=== PATIENT | male | born 1960 | race Caucasian/White ===

== ENCOUNTER → 2016-12-17 | Outpatient (CLI) | payer OTHER ==
--- NOTE | 2016-12-17 14:53 | CT ---
EXAMINATION TYPE: CT chest wo con DATE OF EXAM: 12/17/2016 2:49 PM COMPARISON: NONE HISTORY: shortness of breath CT DLP: [address] of the chest was performed with lung and mediastinal window settings submitted. The la ck of contrast limits evaluation of the vascular, mediastinal and parenchymal structures including th e upper abdomen. LUNGS: The lungs are clear and free of infiltrate. No atelectasis. No pulmonary nodule or mass is de tected. No pleural effusion. No CT evidence of interstitial lung disease. MEDIASTINUM/KERLINE: Thoracic aorta is of normal caliber with limited evaluation given lack of contrast . The heart is mildly enlarged. Mild coronary artery calcifications identified. No evidence for med iastinal mass. No lymph nodes greater than 1cm. UPPER ABDOMEN: No significant abnormality is seen. OTHER: No significant other abnormality. IMPRESSION: 1. No significant abnormality of the lungs. 2. Mild cardiomegaly and coronary artery calcifications.
== END | disposition home or self-care (01) ==
LOC: RADCTMAIN 14:27
PROVIDERS: ATTEND Internal Medicine Critical Care Medicine
DX: J98.4 Other disorders of lung (principal); I51.7 Cardiomegaly; I25.10 Atherosclerotic heart disease of native coronary artery without angina pectoris
CPT/HCPCS: 71250

== ENCOUNTER 2017-01-11 11:25 | Inpatient (IN) | payer OTHER ==
[2017-01-11] MEDS ORDERED: ASPIRIN 81 MG CHEW PO STA (11:46)
[2017-01-11] MEDS ORDERED: SODIUM CHLORIDE 0.9% 1,000 ML IV STA ×2 (11:46)
[2017-01-11] MEDS ORDERED: DILTIAZEM 5 MG/ML 5 ML VIAL IVP STA (11:47)
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
[2017-01-11] MEDS ORDERED: HEPARIN SODIUM,PORCINE 5,000 UNIT/ML 1 ML VIAL IV PRN (12:25)
[2017-01-11] MEDS: DILTIAZEM 125 MG in SODIUM CHLORIDE 0.9% 100 ML IV ONE (12:32)
[2017-01-11 12:35] LABS: Basophils % (A) 0 %; CH 30.8; CHCM 33.2; Eosinophils # (A) 0.1 k/uL (0-0.7); Eosinophils % (A) 1 %; HCT 49.1 % (39.0-53.0); HDW 2.38; Luc % (Auto) 2; Lymphocytes # (A) 1.5 k/uL (1.0-4.8); Lymphocytes % (A) 14 %; MCH 30.4 pg (25.0-35.0); MCHC 32.6 g/dL (31.0-37.0); MCV 93.4 fL (80.0-100.0); Mean Platelet Volume 8.8; Monocytes # (A) 0.6 k/uL (0-1.0); Monocytes % (A) 5 %; Neutrophils # (A) 8.6 k/uL (1.3-7.7); Neutrophils % (A) 78 %; RBC 5.26 m/uL (4.30-5.90); RDW 13.6 % (11.5-15.5); WBC (Perox) 11.05
[2017-01-11 12:50] LABS: ALT 82 U/L (21-72); AST 45 U/L (17-59); Alkaline Phosphatase 32 U/L (38-126); Anion Gap 11 mmol/L; Blood Urea Nitrogen 17 mg/dL (9-20); Calcium 9.4 mg/dL (8.4-10.2); Carbon Dioxide 21 mmol/L (22-30); Chloride 104 mmol/L (98-107); Glucose 145 mg/dL (74-99); Magnesium 1.8 mg/dL (1.6-2.3); Non-African American GFR(MDRD) >60 (>60 ml/min/1.73 sqM); Potassium 4.6 mmol/L (3.5-5.1); Sodium 136 mmol/L (137-145); Total Bilirubin 1.1 mg/dL (0.2-1.3); Total Protein 6.3 g/dL (6.3-8.2)
--- NOTE | 2017-01-11 12:51 | XR ---
EXAMINATION TYPE: XR chest 2V DATE OF EXAM: 01/11/2017 12:45 PM HISTORY: dysrhythmia. REFERENCE: NONE. FINDINGS: The heart is enlarged. There is mild atelectasis at the left lung base. There are diffuse i ncreased markings. Pleural spaces are clear. IMPRESSION: 1. CARDIOMEGALY. 2. LEFT BASILAR ATELECTASIS.
[2017-01-11 13:11] LABS: Partial Thromboplastin Time 22.6 sec (22.0-30.0); Prothrombin Time 10.6 sec (9.0-12.0)
[2017-01-11 13:19] LABS: Troponin I 0.036 ng/mL (0.000-0.034)
[2017-01-11] MEDS: SODIUM CHLORIDE 0.9% 1,000 ML IV SCH (13:46)
[2017-01-11] MEDS: HEPARIN SODIUM,PORCINE/D5W PMX 25,000 UNIT in DEXTROSE/WATER 1 500ML.BAG IV SCH (13:46)
[2017-01-11 15:18] LABS: Appearance,Urine Clear (Clear); Bilirubin,Urine Negative (Negative); Glucose,Urine (UA) Negative (Negative); Ketones,Urine Negative (Negative); Leukocyte Esterase,Urine Negative (Negative); Nitrite,Urine Negative (Negative); PH, Urine 6.5 (5.0-8.0); Protein,Urine Negative (Negative); Specific Gravity,Urine 1.013 (1.001-1.035); UA Billing (MACRO vs. MICRO) CHEM; Urobilinogen,Urine <2.0 mg/dL (<2.0)
[2017-01-11] MEDS ORDERED: ALPRAZolam 0.25 MG TAB PO PRN (16:48)
[2017-01-11] MEDS: FUROSEMIDE 10 MG/ML 2 ML VIAL IV SCH ×2 (16:53→20:43)
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
[2017-01-11] MEDS: LORazepam 0.5 MG TAB PO PRN (19:15)
[2017-01-11] MEDS: HYDROcodone/APAP 5-325MG 1 EACH TAB PO PRN (19:15)
[2017-01-11] MEDS: LEVALBUTEROL NEB 1.25 MG/3 ML AMP INHALATION SCH (20:26)
[2017-01-11] MEDS: METOPROLOL TARTRATE 25 MG TAB PO SCH (20:43)
[2017-01-11 20:50] LABS: Creatine Kinase MB 4.5 ng/mL (0.0-2.4); Troponin I 0.043 ng/mL (0.000-0.034)
[2017-01-11] MEDS ORDERED: TEMAZEPAM 15 MG CAP PO PRN (21:00)
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
[2017-01-12 00:33] LABS: Creatine Kinase MB 4.1 ng/mL (0.0-2.4); Troponin I 0.04 ng/mL (0.000-0.034)
[2017-01-12] MEDS: LORazepam 0.5 MG TAB PO PRN ×2 (03:14→11:56)
[2017-01-12 03:34] LABS: Basophils % (A) 0 %; CH 30.8; CHCM 33.1; Eosinophils # (A) 0.1 k/uL (0-0.7); Eosinophils % (A) 1 %; HCT 46.1 % (39.0-53.0); HDW 2.36; HGB 15.1 gm/dL (13.0-17.5); Luc # (Auto) 0.17; Luc % (Auto) 2; Lymphocytes # (A) 1.5 k/uL (1.0-4.8); Lymphocytes % (A) 13 %; MCH 30.6 pg (25.0-35.0); MCHC 32.8 g/dL (31.0-37.0); MCV 93.4 fL (80.0-100.0); Mean Platelet Volume 8.4; Monocytes # (A) 0.6 k/uL (0-1.0); Monocytes % (A) 5 %; Neutrophils % (A) 80 %; RBC 4.94 m/uL (4.30-5.90); RDW 13.7 % (11.5-15.5); WBC 11.3 k/uL (3.8-10.6); WBC (Perox) 11.94
[2017-01-12 03:41] LABS: Anion Gap 10 mmol/L; Blood Urea Nitrogen 20 mg/dL (9-20); Carbon Dioxide 20 mmol/L (22-30); Chloride 103 mmol/L (98-107); Cholesterol 140 mg/dL (<200); HDL Cholesterol 36 mg/dL (40-60); Non-African American GFR(MDRD) >60 (>60 ml/min/1.73 sqM); Potassium 4.3 mmol/L (3.5-5.1); Sodium 133 mmol/L (137-145); Triglycerides 75 mg/dL (<150)
[2017-01-12] MEDS: SODIUM CHLORIDE 0.9% 1,000 ML IV SCH ×2 (05:20→09:34)
[2017-01-12] MEDS: LEVOTHYROXINE 137 MCG TAB PO SCH (06:37)
[2017-01-12] MEDS: PANTOPRAZOLE 40 MG TABLET PO SCH (06:39)
[2017-01-12] MEDS: SYMBICORT 160-4.5 MCG INHALER INHALATION SCH ×2 (08:06→21:08)
[2017-01-12] MEDS: LEVALBUTEROL NEB 1.25 MG/3 ML AMP INHALATION SCH ×3 (08:06→21:09)
--- NOTE | 2017-01-12 08:57 | ECHOF ---
Referral Reason:atrial flutter MEASUREMENTS -------- HEIGHT: 180.3 cm WEIGHT: 127.9 kg BP: 108/83 RVIDd: 3.4 cm (< 3.3) IVSd: 1.5 cm (0.6 - 1.1) LVIDd: 4.8 cm (3.9 - 5.3) LVPWd: 1.6 cm (0.6 - 1.1) IVSs: 2.1 cm LVIDs: 4.1 cm LVPWs: 2.0 cm LA Diam: 3.7 cm (2.7 - 3.8) LAESV Index (A-L): 34.19 ml/m Ao Diam: 3.9 cm (2.0 - 3.7) AV Cusp: 2.3 cm (1.5 - 2.6) MV EXCURSION: 16.399 mm (> 18.000) MV EF SLOPE: 148 mm/s (70 - 150) EPSS: 1.2 cm RAP: 15.00 mmHg RVSP: 44.78 mmHg FINDINGS -------- The rhythm appears to be atrial flutter. This was a technically difficult study with suboptimal views. The left ventricular size is normal. There is moderate concentric left ventricular hypertrophy. There is severe global hypokinesis of LV . Overall left ventricular systolic function is severely impaired with, an EF between 20 - 25 %. The right ventricle is mildly enlarged. LA is moderately dilated 34-39 ml/m2 The right atrium was not well visualized. 1.5mg of Definity was utilized for enhancement of images The aortic valve was not well visualized. The mitral valve leaflets are mildly thickened. Mild mitral annular calcification present. Mild mitral regurgitation is present. Mild tricuspid regurgitation present. There is mild pulmonary hypertension. The right ventricular systolic pressure, as measured by Doppler, is 44.78mmHg. The pulmonic valve was not well visualized. The aortic root is dilated measuring 3.9cm. The inferior vena cava is dilated with poor inspiratory collapse which is consistent with estimated right atrial pressure of 20 mmHg. There is no pericardial effusion. CONCLUSIONS -------- 1. The rhythm appears to be atrial flutter. 2. 1.5mg of Definity was utilized for enhancement of images 3. The aortic valve was not well visualized. 4. The mitral valve leaflets are mildly thickened. 5. Mild mitral annular calcification present. 6. Mild mitral regurgitation is present. 7. Mild tricuspid regurgitation present. 8. There is mild pulmonary hypertension. 9. The right ventricular systolic pressure, as measured by Doppler, is 44.78mmHg. 10. The pulmonic valve was not well visualized. 11. The aortic root is dilated measuring 3.9cm. 12. This was a technically difficult study with suboptimal views. 13. The inferior vena cava is dilated with poor inspiratory collapse which is consistent with estimated right atrial pressure of 20 mmHg. 14. There is no pericardial effusion. 15. The left ventricular size is normal. 16. There is moderate concentric left ventricular hypertrophy. 17. There is severe global hypokinesis of LV . 18. Overall left ventricular systolic function is severely impaired with, an EF between 20 - 25 %. 19. The right ventricle is mildly enlarged. 20. LA is moderately dilated 34-39 ml/m2 21. The right atrium was not well visualized. TRANSFER PROFESSOR: Lupe Archer RDCS
[2017-01-12] MEDS: DILTIAZEM 125 MG in SODIUM CHLORIDE 0.9% 100 ML IV ONE (09:34)
[2017-01-12] MEDS: HEPARIN SODIUM,PORCINE/D5W PMX 25,000 UNIT in DEXTROSE/WATER 1 500ML.BAG IV SCH (09:35)
[2017-01-12] MEDS: ASPIRIN 325 MG TAB PO SCH (09:37)
[2017-01-12] MEDS: FUROSEMIDE 10 MG/ML 2 ML VIAL IV SCH ×2 (09:38→20:35)
[2017-01-12] MEDS: buPROPion XL 300 MG TAB.ER.24H PO SCH (09:38)
[2017-01-12] MEDS: LISINOPRIL 20 MG TAB PO SCH (09:39)
[2017-01-12] MEDS: MONTELUKAST 10 MG TAB PO SCH (09:39)
[2017-01-12] MEDS: METOPROLOL TARTRATE 25 MG TAB PO SCH (09:39)
[2017-01-12] MEDS: TRIAMTERENE-HCTZ 37.5-25MG 1 EACH TAB PO SCH (09:40)
[2017-01-12] MEDS: METHYLPHENIDATE HCL 10 MG TAB PO SCH ×2 (09:49→15:00)
[2017-01-12] MEDS: HYDROcodone/APAP 5-325MG 1 EACH TAB PO PRN (11:54)
[2017-01-12] MEDS: MULTIVITAMINS, THERA 1 EACH TAB PO SCH (11:56)
[2017-01-12] MEDS: FOLIC ACID 1 MG TAB PO SCH (11:56)
[2017-01-12] MEDS: THIAMINE 100 MG TAB PO SCH (11:57)
--- NOTE | 2017-01-12 12:27 | P.PN ---
Subjective Principal diagnosis: Atrial flutter This is a pleasant 56-year-old gentleman who sees Dr. Woodard as an outpatient with a past medical history significant for obesity and hypertension was seen in the office yesterday and was sent directly to the hospital because he was in atrial flutter with rapid ventricular response. The patient continues to be in atrial flutter with slightly uncontrolled heart rate. Currently he is on metoprolol 25 mg by mouth twice a day. The blood pressure has been within normal limits. He is on anticoagulation using heparin IV. He underwent an echocardiogram which showed severe cardiomyopathy with an ejection fraction of 20%. At this point, I am going to increase the dose of metoprolol to 50 twice a day. I am going to DC the heparin and start the patient on anticoagulation with Eliquis. We'll continue monitoring the heart rate. Objective - Vital Signs Vital signs: Vital Signs Temp 98.2 F 01/12/17 08:10 Pulse 90 01/12/17 08:10 Resp 20 01/12/17 08:10 BP 116/77 01/12/17 08:10 Pulse Ox 98 01/12/17 08:10 Intake & Output 01/11/17 01/12/17 01/12/17 18:59 06:59 18:59 Intake Total 180 378.227 226.940 Output Total 300 Balance -120 378.227 226.940 Weight 128.9 kg Intake: Intake, IV Titration 378.227 226.940 Amount Diltiazem 125 mg In 105.167 Sodium Chloride 0.9% 100 ml @ 5 MG/HR 5 mls/hr IV .Q24H ONE Rx#:[id number] Heparin Sodium,Porcine/ 378.227 121.773 D5w Pmx 25,000 unit In Dextrose/Water 1 500ml. bag @ 7.818 UNITS/KG/HR 20 mls/hr IV .Q24H [facility] Rx #:[id number] Oral 180 Output: Urine 300 Other: # Voids 1 2 # Bowel Movements 0 - Constitutional General appearance: Present: no acute distress - Respiratory Respiratory: bilateral: CTA - Cardiovascular Rhythm: irregularly irregular - Labs CBC & Chem 7: 01/12/17 03:10 01/12/17 03:10 Labs: Abnormal Lab Results - Last 24 Hours (Table) 01/11/17 01/11/17 01/12/17 Range/Units 19:34 23:39 03:10 WBC 11.3 H (3.8-10.6) k/uL Neutrophils # 9.0 H (1.3-7.7) k/uL APTT (22.0-30.0) sec Sodium (137-145) mmol/L Carbon Dioxide (22-30) mmol/L CK-MB (CK-2) 4.5 H* 4.1 H* (0.0-2.4) ng/mL Troponin I 0.043 H* 0.040 H* (0.000-0.034) ng/mL HDL Cholesterol (40-60) mg/dL 01/12/17 01/12/17 01/12/17 Range/Units 03:10 03:10 10:46 WBC (3.8-10.6) k/uL Neutrophils # (1.3-7.7) k/uL APTT 30.6 H 36.4 H (22.0-30.0) sec Sodium 133 L (137-145) mmol/L Carbon Dioxide 20 L (22-30) mmol/L CK-MB (CK-2) (0.0-2.4) ng/mL Troponin I (0.000-0.034) ng/mL HDL Cholesterol 36 L (40-60) mg/dL Assessment and Plan Plan: Assessment #1 atrial flutter with slightly uncontrolled heart rate #2 systemic hypertension #3 obesity #4 possible sleep apnea #5 severe cardiomyopathy and unknown if is ischemic or nonischemic Plan #1 increase the dose of metoprolol #2 DC heparin #3 start oral anticoagulation #4 follow-up with the patient
--- NOTE | 2017-01-12 12:48 | P.PN ---
Subjective Principal diagnosis: Atrial flutter 56-year-old male patient, obese, nonsmoker, who was initially referred to me for evaluation of shortness of breath. The patient was diagnosed having bronchial asthma many years back. His symptoms were rather nonspecific. He reports difficulties with his bronchial asthma along with episodes of shortness of breath chest tightness and wheezing and coughing and inability to fully expand his lungs. He had an FEV1 of 56% of predicted with limited reversibility post-bronchodilation.. He also had a total lung capacity of 68% of predicted and diffusion capacity of 110% of predicted. I started the patient on Breo Ellipta and gave him a prednisone burst taper. Upon subsequent follow-up, the response that she was suboptimal. The patient reported episodes with he was waking up in the middle of the night short of breath and this was really not accounted for only on pulmonary standpoint. Based on that, I referred this patient to cardiology and on today's evaluation with Dr. Woodard the patient was found to be having atrial flutter with rapid ventricular response. He had variable block. He was given a dose of Cardizem and the cardiology office without any significant slowing in his heart rate. Based on that the patient was admitted to the hospital for rate control and further treatment. Currently is on Cardizem drip running at 5 mg an hour. He is also on IV heparin. Echocardiogram is to follow. He denies having any chest pain. Most major swelling in lower extremities. He does have features of obstructive sleep apnea. the patient is seen again today in follow-up 01/12/2017 on the selective care unit. He is awake and alert in no acute distress. He states he has had some issues with my hope chest discomfort. His breathing has been about the same. He does have some palpitations. His heart rate is better controlled. He remains on a Cardizem drip at 5 mg per hour. He is anticoagulated with IV heparin. His echocardiogram did reveal severely impaired left ventricular systolic function with estimated ejection fraction between 20 and 25%. Objective - Vital Signs Vital signs: Vital Signs Temp 98.2 F 01/12/17 08:10 Pulse 90 01/12/17 08:10 Resp 20 01/12/17 08:10 BP 116/77 01/12/17 08:10 Pulse Ox 98 01/12/17 08:10 Intake & Output 01/11/17 01/12/17 01/12/17 18:59 06:59 18:59 Intake Total 180 378.227 226.940 Output Total 300 Balance -120 378.227 226.940 Weight 128.9 kg Intake: Intake, IV Titration 378.227 226.940 Amount Diltiazem 125 mg In 105.167 Sodium Chloride 0.9% 100 ml @ 5 MG/HR 5 mls/hr IV .Q24H ONE Rx#:[id number] Heparin Sodium,Porcine/ 378.227 121.773 D5w Pmx 25,000 unit In Dextrose/Water 1 500ml. bag @ 7.818 UNITS/KG/HR 20 mls/hr IV .Q24H [facility] Rx #:[id number] Oral 180 Output: Urine 300 Other: # Voids 1 2 # Bowel Movements 0 - Exam Morbidly obese, calm and comfortable, not in distress.Head exam was generally normal. There was no scleral icterus or corneal arcus. Mucous membranes were moist. Neck is supple and the patient has significant crowding of the posterior oropharynx. There is no goiter or neck masses. Lungs sounds are clear and there is no wheezing on chronic crackles. Heart sounds are irregular , positive S1-S2 and there is asystolic murmur appreciated. Abdomen is obese and the patient has soft abdomen without any direct tenderness about this or guarding. Examination of the extremities revealed easily palpable radial, femoral and pedal pulses. There was no cyanosis, clubbing or edema. - Labs CBC & Chem 7: 01/12/17 03:10 01/12/17 03:10 Labs: Abnormal Lab Results - Last 24 Hours (Table) 01/11/17 01/11/17 01/12/17 Range/Units 19:34 23:39 03:10 WBC 11.3 H (3.8-10.6) k/uL Neutrophils # 9.0 H (1.3-7.7) k/uL APTT (22.0-30.0) sec Sodium (137-145) mmol/L Carbon Dioxide (22-30) mmol/L CK-MB (CK-2) 4.5 H* 4.1 H* (0.0-2.4) ng/mL Troponin I 0.043 H* 0.040 H* (0.000-0.034) ng/mL HDL Cholesterol (40-60) mg/dL 01/12/17 01/12/17 01/12/17 Range/Units 03:10 03:10 10:46 WBC (3.8-10.6) k/uL Neutrophils # (1.3-7.7) k/uL APTT 30.6 H 36.4 H (22.0-30.0) sec Sodium 133 L (137-145) mmol/L Carbon Dioxide 20 L (22-30) mmol/L CK-MB (CK-2) (0.0-2.4) ng/mL Troponin I (0.000-0.034) ng/mL HDL Cholesterol 36 L (40-60) mg/dL Assessment and Plan Plan: Impression 1 episodic dyspnea likely in association with cardiac arrhythmia. The patient was identified having atrial flutter with rapid ventricular response and probably was having proximal atrial flutter even on outpatient basis. Rule out underlying cardiomyopathy. Rule out underlying ischemic cardiac events. Rule out underlying obstructive sleep apnea contributing to his a flutter. Thyroid status needs to be rechecked 2 moderate persistent bronchial asthma, currently inactive in stable 3 obesity 4 loss noted with suspected obstructive sleep apnea. 5 ADHD 6 depression 7 hypothyroidism 8 hypertension 9 restrictive lung physiology based on these poor function test the patient is a total lung capacity of 68% of predicted. A recent CAT scan of the chest that was done at [facility] showed no acute abnormalities noted there is any evidence of interstitial lung disease or fibrosis. Plan: The patient was seen and evaluated by Dr. Del Rosario. His echocardiogram and labs were reviewed. Cardiology has recommended transitioning him to [facility]. It is unclear if the cardiomyopathy is ischemic or nonischemic in nature. He' ll most likely undergo cardiac catheterization at some point. His beta blockers are being adjusted for better rate control. We'll increase his activity as tolerated. We'll continue to follow. We'll continue to plan for an outpatient sleep study as well.
[2017-01-12] MEDS ORDERED: DILTIAZEM 125 MG in SODIUM CHLORIDE 0.9% 100 ML IV SCH (15:00)
[2017-01-12] MEDS: ONDANSETRON 4 MG/2 ML VIAL IVP PRN (17:00)
[2017-01-12] MEDS ORDERED: FUROSEMIDE 10 MG/ML 2 ML VIAL IV ONE (17:25)
[2017-01-12] MEDS: APIXABAN 5 MG TAB PO SCH (18:45)
[2017-01-12] MEDS: METOPROLOL TARTRATE 50 MG TAB PO SCH (20:34)
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
[2017-01-13] MEDS: LORazepam 0.5 MG TAB PO PRN ×3 (00:30→19:04)
[2017-01-13] MEDS: ONDANSETRON 4 MG/2 ML VIAL IVP PRN ×2 (00:53→19:15)
[2017-01-13] MEDS: LEVOTHYROXINE 137 MCG TAB PO SCH (06:17)
[2017-01-13] MEDS: PANTOPRAZOLE 40 MG TABLET PO SCH (06:17)
[2017-01-13 06:25] LABS: Basophils % (A) 0 %; CH 30.2; CHCM 32.6; Eosinophils % (A) 0 %; HCT 45.2 % (39.0-53.0); HDW 2.24; HGB 14.6 gm/dL (13.0-17.5); Luc # (Auto) 0.17; Luc % (Auto) 2; Lymphocytes # (A) 1.3 k/uL (1.0-4.8); Lymphocytes % (A) 11 %; MCHC 32.2 g/dL (31.0-37.0); Monocytes # (A) 0.6 k/uL (0-1.0); Monocytes % (A) 5 %; Neutrophils # (A) 9.4 k/uL (1.3-7.7); Neutrophils % (A) 82 %; RBC 4.86 m/uL (4.30-5.90); RDW 13.6 % (11.5-15.5); WBC 11.6 k/uL (3.8-10.6)
[2017-01-13] MEDS: SYMBICORT 160-4.5 MCG INHALER INHALATION SCH ×2 (08:46→19:30)
[2017-01-13] MEDS: ALBUTEROL NEBULIZED 2.5 MG/3 ML INHALATION SCH ×4 (08:46→19:34)
[2017-01-13] MEDS: METHYLPHENIDATE HCL 10 MG TAB PO SCH ×2 (09:22→14:35)
[2017-01-13] MEDS: LISINOPRIL 20 MG TAB PO SCH (09:24)
[2017-01-13] MEDS: APIXABAN 5 MG TAB PO SCH ×2 (09:24→19:51)
[2017-01-13] MEDS: ASPIRIN 325 MG TAB PO SCH (09:24)
[2017-01-13] MEDS: buPROPion XL 300 MG TAB.ER.24H PO SCH (09:24)
[2017-01-13] MEDS: METOPROLOL TARTRATE 50 MG TAB PO SCH ×2 (09:25→19:51)
[2017-01-13] MEDS: MONTELUKAST 10 MG TAB PO SCH (09:25)
[2017-01-13] MEDS: TRIAMTERENE-HCTZ 37.5-25MG 1 EACH TAB PO SCH (09:26)
[2017-01-13] MEDS: SPIRONOLACTONE 25 MG TAB PO SCH (09:26)
[2017-01-13] MEDS: FOLIC ACID 1 MG TAB PO SCH (11:54)
[2017-01-13] MEDS: THIAMINE 100 MG TAB PO SCH (11:55)
[2017-01-13] MEDS: MULTIVITAMINS, THERA 1 EACH TAB PO SCH (11:55)
[2017-01-13] MEDS: FUROSEMIDE 10 MG/ML 2 ML VIAL IV SCH ×2 (11:56→19:03)
--- NOTE | 2017-01-13 12:03 | P.PN ---
Subjective 56-year-old male patient, obese, nonsmoker, who was initially referred to me for evaluation of shortness of breath. The patient was diagnosed having bronchial asthma many years back. His symptoms were rather nonspecific. He reports difficulties with his bronchial asthma along with episodes of shortness of breath chest tightness and wheezing and coughing and inability to fully expand his lungs. He had an FEV1 of 56% of predicted with limited reversibility post-bronchodilation.. He also had a total lung capacity of 68% of predicted and diffusion capacity of 110% of predicted. I started the patient on Breo Ellipta and gave him a prednisone burst taper. Upon subsequent follow-up, the response that she was suboptimal. The patient reported episodes with he was waking up in the middle of the night short of breath and this was really not accounted for only on pulmonary standpoint. Based on that, I referred this patient to cardiology and on today's evaluation with Dr. Woodard the patient was found to be having atrial flutter with rapid ventricular response. He had variable block. He was given a dose of Cardizem and the cardiology office without any significant slowing in his heart rate. Based on that the patient was admitted to the hospital for rate control and further treatment. Currently is on Cardizem drip running at 5 mg an hour. He is also on IV heparin. Echocardiogram is to follow. He denies having any chest pain. Most major swelling in lower extremities. He does have features of obstructive sleep apnea. the patient is seen again today in follow-up 01/12/2017 on the selective care unit. He is awake and alert in no acute distress. He states he has had some issues with my hope chest discomfort. His breathing has been about the same. He does have some palpitations. His heart rate is better controlled. He remains on a Cardizem drip at 5 mg per hour. He is anticoagulated with IV heparin. His echocardiogram did reveal severely impaired left ventricular systolic function with estimated ejection fraction between 20 and 25%. On 01/13/2017, the patient is being seen in follow-up. His emanating in the hallway. No major respiratory difficulties unless he exerts himself. He is still in atrial flutter and the rate is controlled for now. He is taken off the Cardizem drip knowing that he had a episode of hypotension where his systolic blood pressure dropped in the low 70s and then it picked up after the Cardizem drip was discontinued. 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 I discussed the case with Drs. Emerson. This could be potentially a tachycardia-induced cardiomyopathy. Ischemic cardiomyopathy was also within the differential diagnosis. Objective - Vital Signs Vital signs: Vital Signs Temp 97.1 F L 01/13/17 09:00 Pulse 85 01/13/17 09:00 Resp 16 01/13/17 09:00 BP 115/69 01/13/17 09:00 Pulse Ox 99 01/13/17 09:00 Intake & Output 01/12/17 01/13/17 01/13/17 18:59 06:59 18:59 Intake Total 346.940 660 Output Total 1100 2600 Balance -753.060 -1940 Weight 128 kg Intake: Intake, IV Titration 226.940 420 Amount Diltiazem 125 mg In 105.167 Sodium Chloride 0.9% 100 ml @ 5 MG/HR 5 mls/hr IV .Q24H ONE Rx#:[id number] Diltiazem 125 mg In 20 Sodium Chloride 0.9% 100 ml @ 5 MG/HR 5 mls/hr IV .Q24H [facility]ARCIE Rx#:[id number] Heparin Sodium,Porcine/ 121.773 D5w Pmx 25,000 unit In Dextrose/Water 1 500ml. bag @ 7.818 UNITS/KG/HR 20 mls/hr IV .Q24H [facility] Rx #:[id number] Sodium Chloride 0.9% 1, 400 000 ml @ 100 mls/hr IV . Q10H DARCIE Rx#:[id number] Oral 120 240 Output: Urine 1100 2600 Other: # Voids 2 2 1 # Bowel Movements 0 0 - Exam Morbidly obese, calm and comfortable, not in distress.Head exam was generally normal. There was no scleral icterus or corneal arcus. Mucous membranes were moist. Neck is supple and the patient has significant crowding of the posterior oropharynx. There is no goiter or neck masses. Lungs sounds are clear and there is no wheezing on chronic crackles. Heart sounds are irregular , positive S1-S2 and there is asystolic murmur appreciated. Abdomen is obese and the patient has soft abdomen without any direct tenderness about this or guarding. Examination of the extremities revealed easily palpable radial, femoral and pedal pulses. There was no cyanosis, clubbing or edema. - Labs CBC & Chem 7: 01/13/17 05:40 01/12/17 03:10 Labs: Abnormal Lab Results - Last 24 Hours (Table) 01/13/17 Range/Units 05:40 WBC 11.6 H (3.8-10.6) k/uL Neutrophils # 9.4 H (1.3-7.7) k/uL Assessment and Plan Plan: Impression 1 cardiomyopathy with an ejection fraction of 20-25%. Rule out tachycardia- induced Justine myopathy. Rule out ischemic cardiac myopathy. Viral cardiomyopathy or drug induced including alcohol cardiomyopathy is felt to be less likely. The patient is also in atrial flutter, rate is controlled for now. 2 moderate persistent bronchial asthma, currently inactive in stable 3 obesity 4 clinical obstructive sleep apnea. The diagnoses not been established yet. 5 ADHD 6 depression 7 hypothyroidism 8 hypertension 9 restrictive lung physiology based on these poor function test the patient is a total lung capacity of 68% of predicted. A recent CAT scan of the chest that was done at [facility] showed no acute abnormalities noted there is any evidence of interstitial lung disease or fibrosis. Plan Management of atrial flutter per cardiology. Patient remains in flutter. The rate is controlled. The patient is on anticoagulation. The patient on diuretics. The patient will need a cardiac catheterization later stage. The patient will also need a sleep study on outpatient basis. Asthma is inactive and stable for now.
--- NOTE | 2017-01-13 13:10 | P.PN ---
Subjective Principal diagnosis: Atrial flutter This is a pleasant 56-year-old gentleman who sees Dr. Woodard as an outpatient with a past medical history significant for obesity and hypertension was seen in the office yesterday and was sent directly to the hospital because he was in atrial flutter with rapid ventricular response. The patient continues to be in atrial flutter with slightly uncontrolled heart rate. Currently he is on metoprolol 25 mg by mouth twice a day. The blood pressure has been within normal limits. He is on anticoagulation using heparin IV. He underwent an echocardiogram which showed severe cardiomyopathy with an ejection fraction of 20%. The heart rate has been between 90-100 on the current dose of metoprolol which is 50 mg twice a day. He is on anticoagulation using Eliquis. Beside that he is on LEMUEL inhibitor as well as on aldosterone antagonist. I am going to keep the patient on the current medical treatment. I recommended keeping the patient for additional 24 hours and follow-up with him. Objective - Vital Signs Vital signs: Vital Signs Temp 97.2 F L 01/13/17 11:50 Pulse 100 01/13/17 11:50 Resp 16 01/13/17 11:50 BP 109/72 01/13/17 11:50 Pulse Ox 97 01/13/17 11:50 Intake & Output 01/12/17 01/13/17 01/13/17 18:59 06:59 18:59 Intake Total 346.940 660 Output Total 1100 2600 Balance -753.060 -1940 Weight 128 kg Intake: Intake, IV Titration 226.940 420 Amount Diltiazem 125 mg In 105.167 Sodium Chloride 0.9% 100 ml @ 5 MG/HR 5 mls/hr IV .Q24H ONE Rx#:[id number] Diltiazem 125 mg In 20 Sodium Chloride 0.9% 100 ml @ 5 MG/HR 5 mls/hr IV .Q24H [facility]CIE Rx#:[id number] Heparin Sodium,Porcine/ 121.773 D5w Pmx 25,000 unit In Dextrose/Water 1 500ml. bag @ 7.818 UNITS/KG/HR 20 mls/hr IV .Q24H [facility] Rx #:[id number] Sodium Chloride 0.9% 1, 400 000 ml @ 100 mls/hr IV . Q10H [facility]E Rx#:[id number] Oral 120 240 Output: Urine 1100 2600 Other: # Voids 2 2 1 # Bowel Movements 0 0 - Constitutional General appearance: Present: no acute distress - Respiratory Respiratory: bilateral: CTA - Cardiovascular Rhythm: irregularly irregular Heart sounds: normal: S1, S2 - Labs CBC & Chem 7: 01/13/17 05:40 01/12/17 03:10 Labs: Abnormal Lab Results - Last 24 Hours (Table) 01/13/17 Range/Units 05:40 WBC 11.6 H (3.8-10.6) k/uL Neutrophils # 9.4 H (1.3-7.7) k/uL Assessment and Plan Plan: Assessment #1 atrial flutter with slightly uncontrolled heart rate #2 systemic hypertension #3 obesity #4 possible sleep apnea #5 severe cardiomyopathy and unknown if is ischemic or nonischemic Plan #1 continue the current medical treatment #2 follow-up with the patient
--- NOTE | 2017-01-13 18:35 | XR ---
EXAMINATION TYPE: XR chest 1V portable DATE OF EXAM: 01/13/2017 6:07 PM CLINICAL HISTORY: Difficulty breathing and CHF progress study. TECHNIQUE: Single AP portable upright view of the chest is obtained. COMPARISON: Chest x-ray from 2 days earlier FINDINGS: Diminished inspiration on current study. Cardiomegaly is redemonstrated. There is no new s uspicious focal airspace opacity, pleural effusion, or pneumothorax seen. Osseous structures are inta ct. IMPRESSION: Cardiomegaly with perhaps mild central vascular congestion not significantly changed from prior. No suspicious focal infiltrate is present.
[2017-01-13] MEDS: HYDROcodone/APAP 5-325MG 1 EACH TAB PO PRN (19:04)
[2017-01-14] MEDS: LORazepam 0.5 MG TAB PO PRN (03:41)
[2017-01-14 04:51] VITALS: RESP 17
[2017-01-14] MEDS: PANTOPRAZOLE 40 MG TABLET PO SCH (06:33)
[2017-01-14] MEDS: LEVOTHYROXINE 137 MCG TAB PO SCH (06:33)
[2017-01-14 06:37] LABS: Basophils % (A) 0 %; CH 30.1; CHCM 32.7; Eosinophils # (A) 0.1 k/uL (0-0.7); Eosinophils % (A) 1 %; HCT 47.1 % (39.0-53.0); HDW 2.22; HGB 14.8 gm/dL (13.0-17.5); Luc # (Auto) 0.18; Luc % (Auto) 2; Lymphocytes # (A) 1.7 k/uL (1.0-4.8); Lymphocytes % (A) 20 %; MCH 29.1 pg (25.0-35.0); MCHC 31.5 g/dL (31.0-37.0); MCV 92.5 fL (80.0-100.0); Mean Platelet Volume 7.7; Monocytes # (A) 0.6 k/uL (0-1.0); Monocytes % (A) 7 %; Neutrophils # (A) 5.9 k/uL (1.3-7.7); Neutrophils % (A) 69 %; RBC 5.09 m/uL (4.30-5.90); RDW 13.5 % (11.5-15.5); WBC 8.6 k/uL (3.8-10.6); WBC (Perox) 9.02
[2017-01-14] MEDS: SYMBICORT 160-4.5 MCG INHALER INHALATION SCH (09:05)
[2017-01-14] MEDS: ALBUTEROL NEBULIZED 2.5 MG/3 ML INHALATION SCH ×2 (09:06→12:36)
[2017-01-14] MEDS: MONTELUKAST 10 MG TAB PO SCH (09:44)
[2017-01-14] MEDS: METOPROLOL TARTRATE 50 MG TAB PO SCH (09:44)
[2017-01-14] MEDS: FUROSEMIDE 10 MG/ML 2 ML VIAL IV SCH (09:44)
[2017-01-14] MEDS: APIXABAN 5 MG TAB PO SCH (09:44)
[2017-01-14] MEDS: buPROPion XL 300 MG TAB.ER.24H PO SCH (09:44)
[2017-01-14] MEDS: SPIRONOLACTONE 25 MG TAB PO SCH (09:44)
[2017-01-14] MEDS: LISINOPRIL 20 MG TAB PO SCH (09:44)
[2017-01-14] MEDS: ASPIRIN 325 MG TAB PO SCH (09:44)
[2017-01-14] MEDS: TRIAMTERENE-HCTZ 37.5-25MG 1 EACH TAB PO SCH (09:44)
[2017-01-14] MEDS: METHYLPHENIDATE HCL 10 MG TAB PO SCH ×2 (09:52→12:12)
--- NOTE | 2017-01-14 11:10 | PN ---
56-year-old gentleman who is admitted to hospital with new onset cardiomyopathy with severe LV systolic dysfunction and atrial fibrillation. The patient has patient has history of hypertension and had been short of breath too. When he was actually sent to our office for a stress test and was found to be in atrial flutter with rapid ventricular rate and the subsequent EKG had shown severe LV dysfunction. This morning he is comfortable at rest. Denies any symptoms. Rhythm strip shows that he is still in flutter but with controlled heart rate. He is currently is on: 1. Eliquis 5 b.i.d. 2. Aspirin. 3. Lasix 20 mg q.12. 4. Lisinopril 20 daily. 5. Lopressor 50 b.i.d. 6. Aldactone. I am going to switch his Lasix to p.o., ambulate him and if he is feeling well, discharge him home and schedule follow-up with Dr. Woodard, who has seen him, on Saturday. The plan is to do a cardiac cath on him to evaluate his underlying cardiomyopathy and do a SHEILA, cardioversion subsequently. On exam today he is comfortable at rest. Vital signs are stable. Chest exam reveals good air entry bilaterally. Heart exam reveals first and second heart sounds, irregular rhythm. ABDOMEN: Soft. Exam of the extremities did not reveal any edema. Peripheral pulses are felt. ASSESSMENT: 1. Atrial flutter with controlled ventricular rate. 2. Nonischemic cardiomyopathy. 3. Acute onset systolic heart failure.
--- NOTE | 2017-01-14 12:06 | CDI ---
In responding to this query, please exercise your independent professional judgment. The [facility] Coding Staff and Clinical Documentation Specialists appreciate your assistance in clarifying documentation, maintaining compliance with coding guidelines, accurately documenting patients condition and capturing severity of illness. The fact that a question is asked does not imply that any particular answer is desired or expected. Communication forms are a method of clarifying documentation and are not made part of the Legal Health Record. Thank you in advance for your clarification. Last Revision, August 2015 [id number] [place] [address] Documentation Clarification Form Date: 01/14/2017 11:56:00 AM From: Angela Sandoval CCS, CCDS Admit Date: 01/11/2017 12:51:00 PM Patient Name: René Scales Visit Number: [id number] Discharge Date: Dr. Gregory Douglass: Per the 01/14 cardiology progress note: 56 yo male, admitted w/new onset cardiomyopathy with severe LV systolic dysfunction and atrial fibrillation. History/Risk Factors: Hypertension, Asthma, Hyperlipidemia, Hypothyroidism, ADD , ADHD. Clinical Indicators: Referred to cardiology office by pulmonary, found to have atrial fibrillation with fast ventricular rate, sent to ER for evaluation, admitted & started on Cardizem drip. Also found to have acute on chronic systolic CHF. EKG/telemetry: R 128 Atrial flutter with variable AV block, right ventricular hypertrophy, ST elevation, consider inferior injury or acute infarct. HR: 103 - 109 - 118 -71 - 100 - 93 Treatment: Cardizem drip, Aspirin, IV fl bolus, IV fluid rate 100, IV Lasix, Nebulizer INH txs, O2 2Lnc. Consults: Pulmonary, Cardiology In your professional opinion, can you please clarify the type of atrial fibrillation, if known? Chronic/Permanent Paroxysmal Persistent Other, please specify Unable to determine Please document in your progress notes and discharge summary in order to capture severity of illness and risk of mortality. Include clinical findings that support your diagnosis. FYI: Press F11 to launch patient chart Place X here if this finding has no clinical significance, is not applicable or if you are not able to provide any additional documentation. Thank You. DOLLY
[2017-01-14] MEDS: FOLIC ACID 1 MG TAB PO SCH (12:12)
[2017-01-14] MEDS: THIAMINE 100 MG TAB PO SCH (12:12)
[2017-01-14] MEDS: MULTIVITAMINS, THERA 1 EACH TAB PO SCH (12:12)
[2017-01-14] MEDS: HYDROcodone/APAP 5-325MG 1 EACH TAB PO PRN (12:20)
[2017-01-14 13:02] VITALS: PULSE 102
[2017-01-14 13:03] VITALS: BP 112/74; TEMP 98.2
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
--- NOTE | 2017-01-14 15:14 | P.PN ---
Subjective Principal diagnosis: Shortness of breath secondary to ischemic cardiomyopathy and LV dysfunction as well as tachycardia. 56-year-old male patient, obese, nonsmoker, who was initially referred to me for evaluation of shortness of breath. The patient was diagnosed having bronchial asthma many years back. His symptoms were rather nonspecific. He reports difficulties with his bronchial asthma along with episodes of shortness of breath chest tightness and wheezing and coughing and inability to fully expand his lungs. He had an FEV1 of 56% of predicted with limited reversibility post-bronchodilation.. He also had a total lung capacity of 68% of predicted and diffusion capacity of 110% of predicted. I started the patient on Breo Ellipta and gave him a prednisone burst taper. Upon subsequent follow-up, the response that she was suboptimal. The patient reported episodes with he was waking up in the middle of the night short of breath and this was really not accounted for only on pulmonary standpoint. Based on that, I referred this patient to cardiology and on today's evaluation with Dr. Woodard the patient was found to be having atrial flutter with rapid ventricular response. He had variable block. He was given a dose of Cardizem and the cardiology office without any significant slowing in his heart rate. Based on that the patient was admitted to the hospital for rate control and further treatment. Currently is on Cardizem drip running at 5 mg an hour. He is also on IV heparin. Echocardiogram is to follow. He denies having any chest pain. Most major swelling in lower extremities. He does have features of obstructive sleep apnea. the patient is seen again today in follow-up 01/12/2017 on the selective care unit. He is awake and alert in no acute distress. He states he has had some issues with my hope chest discomfort. His breathing has been about the same. He does have some palpitations. His heart rate is better controlled. He remains on a Cardizem drip at 5 mg per hour. He is anticoagulated with IV heparin. His echocardiogram did reveal severely impaired left ventricular systolic function with estimated ejection fraction between 20 and 25%. On 01/13/2017, the patient is being seen in follow-up. He is ambulating in the hallway. No major respiratory difficulties unless he exerts himself. He is still in atrial flutter and the rate is controlled for now. He is taken off the Cardizem drip knowing that he had a episode of hypotension where his systolic blood pressure dropped in the low 70s and then it picked up after the Cardizem drip was discontinued. 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 I discussed the case with Drs. Emerson. This could be potentially a tachycardia-induced cardiomyopathy. Ischemic cardiomyopathy was also within the differential diagnosis. Patient was reevaluated today on 01/14/2017, doing well overall, being considered for possible discharge and follow-up on outpatient basis with cardiology. No active pulmonary issues were noted by Dr. Del Rosario, hence I will leave it up to the industrial chemistry teacher as went to decide on discharge planning. Objective - Vital Signs Vital signs: Vital Signs Temp 98.2 F 01/14/17 12:00 Pulse 102 H 01/14/17 12:00 Resp 17 01/14/17 12:00 BP 112/74 01/14/17 12:00 Pulse Ox 97 01/14/17 12:00 Intake & Output 01/13/17 01/14/17 01/14/17 18:59 06:59 18:59 Intake Total 240 240 Output Total 500 Balance 240 -260 Weight 127.6 kg Intake: Oral 240 240 Output: Urine 500 Other: # Voids 1 - Exam Morbidly obese, calm and comfortable, not in distress.Head exam was generally normal. There was no scleral icterus or corneal arcus. Mucous membranes were moist. Neck is supple and the patient has significant crowding of the posterior oropharynx. There is no goiter or neck masses. Lungs sounds are clear and there is no wheezing on chronic crackles. Heart sounds are irregular , positive S1-S2 and there is asystolic murmur appreciated. Abdomen is obese and the patient has soft abdomen without any direct tenderness about this or guarding. Examination of the extremities revealed easily palpable radial, femoral and pedal pulses. There was no cyanosis, clubbing or edema. - Labs CBC & Chem 7: 01/14/17 06:17 01/12/17 03:10 Assessment and Plan Plan: 1 cardiomyopathy with an ejection fraction of 20-25%. Rule out tachycardia- induced Justine myopathy. Rule out ischemic cardiac myopathy. Viral cardiomyopathy or drug induced including alcohol cardiomyopathy is felt to be less likely. The patient is also in atrial flutter, rate is controlled for now. 2 moderate persistent bronchial asthma, currently inactive in stable 3 obesity 4 clinical obstructive sleep apnea. The diagnoses not been established yet. 5 ADHD 6 depression 7 hypothyroidism 8 hypertension 9 restrictive lung physiology based on these poor function test the patient is a total lung capacity of 68% of predicted. A recent CAT scan of the chest that was done at [facility] showed no acute abnormalities noted there is any evidence of interstitial lung disease or fibrosis. Recommendation: Continue treatment plan as per cardiology, and will follow on when necessary basis. Time with Patient: Less than 30
--- NOTE | 2017-01-15 10:11 | CDI ---
In responding to this query, please exercise your independent professional judgment. The [facility] Coding Staff and Clinical Documentation Specialists appreciate your assistance in clarifying documentation, maintaining compliance with coding guidelines, accurately documenting patients condition and capturing severity of illness. The fact that a question is asked does not imply that any particular answer is desired or expected. Communication forms are a method of clarifying documentation and are not made part of the Legal Health Record. Thank you in advance for your clarification. Last Revision, August 2015 [address] [place] [address] Documentation Clarification Form Date: 01/15/2017 10:00:00 AM From: Angela Sandoval CCS, CCDS Admit Date: 01/11/2017 12:51:00 PM Patient Name: René Scales Visit Number: [id number] Discharge Date: 01/14/2017 Dr. Adelfo Keith: Atrial fibrillation is documented in the H&P and also the Discharge Summary with no specificity. Per the cardiology notes, the patient was in Atrial flutter. History/Risk Factors: Hypertension, Hyperlipidemia, Hypothyroidism, ADD/ADHD. Also asthma exacerbations for several months. Clinical Indicators: Patient presented with SOB & paroxysmal nocturnal dyspnea. Seen at the [employer] office and found to have atrial fibrillation w/fast ventricular rate, sent to ER. EKG/telemetry: R 128 Atrial flutter with variable AV block. HR 145 125. Treatment: Telemetry, heparin drip, IV fluid rate 100, IV fluid bolus, IV Cardizem, Nebulizer updrafts, O2 2Lnc. Consults: Cardiology & Pulmonary. In your professional opinion, can you please clarify the if the patient was in Atrial flutter or Atrial fibrillation with the following specificity, if known? Chronic/Permanent Paroxysmal Persistent Other, please specify: Unable to determine Please document in your progress notes and discharge summary in order to capture severity of illness and risk of mortality. Include clinical findings that support your diagnosis. FYI: Press F11 to launch patient chart Place X here if this finding has no clinical significance, is not applicable or if you are not able to provide any additional documentation. Thank You. DOLLY
--- NOTE | 2017-01-15 19:14 | PN ---
ADDENDUM: Please add: FINAL DIAGNOSIS(ES): Chronic persistent atrial fibrillation.
--- NOTE | 2017-02-18 08:54 | PN ---
This is in response to a query from documentation clarification form on [employer]. The patient had chronic atrial fibrillation.
== END 2017-01-14 14:30 | disposition home or self-care (01) | DRG 308 ==
LOC: EC 11:25 → 6SEL 12:51
PROVIDERS: ADMIT Hospitalist; ATTEND Hospitalist
DX: I48.1 Persistent atrial fibrillation (principal); I48.2 Chronic atrial fibrillation; I50.23 Acute on chronic systolic (congestive) heart failure; I42.9 Cardiomyopathy, unspecified; E87.1 Hypo-osmolality and hyponatremia; I11.0 Hypertensive heart disease with heart failure; I95.9 Hypotension, unspecified; E66.01 Morbid (severe) obesity due to excess calories; B17.9 Acute viral hepatitis, unspecified; E03.9 Hypothyroidism, unspecified; E78.00 Pure hypercholesterolemia, unspecified; F32.9 Major depressive disorder, single episode, unspecified; F41.1 Generalized anxiety disorder; F90.9 Attention-deficit hyperactivity disorder, unspecified type; G47.33 Obstructive sleep apnea (adult) (pediatric); J45.40 Moderate persistent asthma, uncomplicated; E78.5 Hyperlipidemia, unspecified; M19.041 Primary osteoarthritis, right hand; M19.042 Primary osteoarthritis, left hand; D72.829 Elevated white blood cell count, unspecified; M17.12 Unilateral primary osteoarthritis, left knee; Z68.39 Body mass index [BMI] 39.0-39.9, adult; Z79.899 Other long term (current) drug therapy; Z88.8 Allergy status to other drugs, medicaments and biological substances; Z82.49 Family history of ischemic heart disease and other diseases of the circulatory system
CPT/HCPCS: 36415; 71010; 71020; 80051; 80053; 80061; 80306; 81003; 82550; 82553; 82565; 83735; 83880; 84443; 84484; 84520; 85025; 85379; 85610; 85730; 93005; 93306; 94640; 94760; 96365; 96375; 96376; 99291

== ENCOUNTER 2017-01-19 00:21 | Inpatient (IN) | payer OTHER ==
[2017-01-19] MEDS ORDERED: DILTIAZEM 5 MG/ML 5 ML VIAL IVP STA (01:00)
[2017-01-19] MEDS ORDERED: DILTIAZEM 125 MG in SODIUM CHLORIDE 0.9% 100 ML IV ONE (01:00)
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
[2017-01-19 01:32] LABS: Basophils % (A) 0 %; CH 30.4; CHCM 33.6; Eosinophils # (A) 0.1 k/uL (0-0.7); Eosinophils % (A) 0 %; HCT 48.7 % (39.0-53.0); HDW 2.24; HGB 16.1 gm/dL (13.0-17.5); Luc # (Auto) 0.17; Luc % (Auto) 1; Lymphocytes # (A) 1.4 k/uL (1.0-4.8); Lymphocytes % (A) 11 %; MCH 29.9 pg (25.0-35.0); MCV 90.8 fL (80.0-100.0); Mean Platelet Volume 8.5; Monocytes # (A) 0.7 k/uL (0-1.0); Monocytes % (A) 6 %; Neutrophils # (A) 10.5 k/uL (1.3-7.7); Neutrophils % (A) 82 %; RBC 5.36 m/uL (4.30-5.90); RDW 13.7 % (11.5-15.5); WBC 12.8 k/uL (3.8-10.6); WBC (Perox) 13.21
[2017-01-19 01:42] LABS: ALT 112 U/L (21-72); AST 52 U/L (17-59); Alkaline Phosphatase 34 U/L (38-126); Anion Gap 11 mmol/L; Blood Urea Nitrogen 27 mg/dL (9-20); Calcium 9.1 mg/dL (8.4-10.2); Carbon Dioxide 20 mmol/L (22-30); Chloride 99 mmol/L (98-107); Glucose 116 mg/dL (74-99); Magnesium 2.1 mg/dL (1.6-2.3); Non-African American GFR(MDRD) >60 (>60 ml/min/1.73 sqM); Potassium 5.1 mmol/L (3.5-5.1); Sodium 130 mmol/L (137-145); Total Bilirubin 1.4 mg/dL (0.2-1.3); Total Protein 5.6 g/dL (6.3-8.2)
--- NOTE | 2017-01-19 02:04 | XR ---
EXAM: XR Chest, 2 Views. CLINICAL HISTORY: Reason: difficulty breathing TECHNIQUE: Frontal and lateral views of the chest. COMPARISON: 01/13/17 FINDINGS: Lungs: Unremarkable. No consolidation. Pleural space: Unremarkable. No pneumothorax. Heart: Enlarged cardiopericardial silhouette is identified, unchanged. Mediastinum: Tortuous thoracic aorta is again seen. Bones/joints: Mild degenerative changes in the thoracic spine. Vasculature: Slight prominence of the central vasculature which may reflect congestion. Tubes, lines and devices: Overlying chest leads obscure portions of the chest. IMPRESSION: Stable enlarged cardiopericardial silhouette. Mild vascular congestion. No effusion
[2017-01-19 02:11] LABS: Troponin I 0.015 ng/mL (0.000-0.034)
[2017-01-19 02:28] LABS: Creatine Kinase MB 2.9 ng/mL (0.0-2.4)
[2017-01-19] MEDS ORDERED: MORPHINE SULFATE 4 MG/ML SYRINGE IV STA (02:46)
[2017-01-19] MEDS ORDERED: FUROSEMIDE 10 MG/ML 4 ML VIAL IV STA (02:46)
[2017-01-19] MEDS ORDERED: NITROGLYCERIN OINT 1 INCH/GM PACKET TOPICAL STA (02:46)
[2017-01-19] MEDS ORDERED: HYDROcodone/APAP 5-325MG 1 EACH TAB PO PRN (03:27)
[2017-01-19] MEDS ORDERED: ONDANSETRON 4 MG/2 ML VIAL IVP STA (03:36)
[2017-01-19] MEDS ORDERED: ONDANSETRON 4 MG/2 ML VIAL ONE (06:49)
[2017-01-19] MEDS: LEVOTHYROXINE 137 MCG TAB PO SCH (06:52)
[2017-01-19] MEDS: PANTOPRAZOLE 40 MG TABLET PO SCH (06:52)
[2017-01-19] MEDS: buPROPion XL 300 MG TAB.ER.24H PO SCH (07:57)
[2017-01-19] MEDS: APIXABAN 5 MG TAB PO SCH ×2 (07:58→20:19)
[2017-01-19] MEDS: METOPROLOL TARTRATE 50 MG TAB PO SCH ×2 (07:58→20:19)
[2017-01-19] MEDS: NITROGLYCERIN OINT 1 INCH/GM PACKET TOPICAL SCH ×4 (07:58→20:12)
[2017-01-19] MEDS: SPIRONOLACTONE 25 MG TAB PO SCH (07:58)
[2017-01-19] MEDS: MONTELUKAST 10 MG TAB PO SCH (07:58)
[2017-01-19] MEDS ORDERED: AMIODARONE 200 MG TAB PO SCH (09:00)
[2017-01-19] MEDS ORDERED: NON-FORMULARY DRUG (Aspirin Ec 81 MG) PO SCH (09:00)
[2017-01-19] MEDS ORDERED: LISINOPRIL 20 MG TAB PO SCH (09:00)
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
[2017-01-19] MEDS: THIAMINE 100 MG TAB PO SCH (11:05)
[2017-01-19] MEDS: FOLIC ACID 1 MG TAB PO SCH (11:05)
[2017-01-19] MEDS: MULTIVITAMINS, THERA 1 EACH TAB PO SCH (11:05)
[2017-01-19] MEDS: LISINOPRIL 20 MG TAB PO SCH ×2 (11:07→11:32)
[2017-01-19] MEDS: SYMBICORT 160-4.5 MCG INHALER INHALATION SCH (11:11)
[2017-01-19] MEDS ORDERED: DEXTROSE 5% IN WATER 100 ML with AMIODARONE 150 MG IV ONE (11:30)
[2017-01-19] MEDS ORDERED: LISINOPRIL 10 MG TAB PO SCH (11:30)
[2017-01-19] MEDS: ONDANSETRON 4 MG/2 ML VIAL IVP PRN ×3 (11:46→23:59)
[2017-01-19] MEDS: AMIODARONE 450 MG in DEXTROSE 5% IN WATER 250 ML IV SCH ×4 (13:28→19:59)
[2017-01-19] MEDS: FUROSEMIDE 10 MG/ML 4 ML VIAL IV SCH ×2 (14:59→23:59)
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
[2017-01-19] MEDS ORDERED: FUROSEMIDE 10 MG/ML 4 ML VIAL IV SCH (18:00)
[2017-01-19] MEDS ORDERED: ALPRAZolam 0.5 MG TAB PO PRN (21:57)
[2017-01-20] MEDS: AMIODARONE 450 MG in DEXTROSE 5% IN WATER 250 ML IV SCH ×2 (03:40)
[2017-01-20] MEDS: PANTOPRAZOLE 40 MG TABLET PO SCH (06:36)
[2017-01-20] MEDS: LEVOTHYROXINE 137 MCG TAB PO SCH (06:36)
[2017-01-20 06:50] LABS: Calcium 8.9 mg/dL (8.4-10.2)
[2017-01-20 06:59] LABS: Potassium 6.5 mmol/L (3.5-5.1)
[2017-01-20] MEDS ORDERED: SODIUM POLYSTYRENE SULFONATE 15 GM/60 ML BOTTLE PO STA ×2 (07:40→18:57)
[2017-01-20] MEDS ORDERED: SODIUM BICARB 8.4% 50 ML SYR (1 MEQ/ML) IV ONE (07:45)
[2017-01-20] MEDS ORDERED: INSULIN REGULAR 100 UNIT/ML VIAL SQ ONE (07:46)
[2017-01-20] MEDS ORDERED: DEXTROSE 50%-WATER 50 ML SYRINGE IVP STA (07:47)
[2017-01-20] MEDS ORDERED: CALCIUM GLUCONATE 1,000 MG in SODIUM CHLORIDE 0.9% 100 ML IVPB ONE (08:30)
[2017-01-20] MEDS: NITROGLYCERIN OINT 1 INCH/GM PACKET TOPICAL SCH ×3 (08:54→16:33)
[2017-01-20] MEDS: SPIRONOLACTONE 25 MG TAB PO SCH (08:55)
[2017-01-20] MEDS: MONTELUKAST 10 MG TAB PO SCH (08:55)
[2017-01-20] MEDS: buPROPion XL 300 MG TAB.ER.24H PO SCH (08:55)
[2017-01-20] MEDS: APIXABAN 5 MG TAB PO SCH ×2 (08:55→22:03)
[2017-01-20] MEDS: METOPROLOL TARTRATE 50 MG TAB PO SCH (08:55)
[2017-01-20] MEDS ORDERED: ASPIRIN 325 MG TAB PO SCH (09:00)
[2017-01-20] MEDS ORDERED: LISINOPRIL 10 MG TAB PO SCH (09:00)
[2017-01-20] MEDS: SYMBICORT 160-4.5 MCG INHALER INHALATION SCH (09:21)
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
--- NOTE | 2017-01-20 10:50 | P.PN ---
Subjective Principal diagnosis: Acute on chronic congestive heart failure and obstructive sleep apnea syndrome his is a 56-year-old white male with history of multiple medical problems including obstructive sleep apnea syndrome based on clinical symptoms, workup is pending for obstructive sleep apnea. History of cardiomyopathy and LV dysfunction, obesity, congestive heart failure, some component of restrictive lung disease based on previous PFT. Patient was brought into the hospital with mostly shortness of breath upon lying flat, feels he cannot breathe and sometimes he has episodes of apnea and stop breathing. This has been going on for the last 3 days. Patient was recently seen by Dr. Del Rosario, workup for obstructive sleep apnea is pending, and benzodiazepine was added to his regimen but was not helping. Patient describes occasional cough, nonproductive, no fever, no chills, no hemoptysis, he also describes significant swelling in his lower extremities. Went back to my previous note on this patient, patient had previous PFT at [facility] showing FEV1 of 56%, total lung capacity was 68%, however his diffusion was normal. Has been treated in the past with bronchodilators including the breo and prednisone. Previous CT of the chest failed to show any evidence of interstitial lung disease. Previous echocardiogram on this patient showed EF of 20-25% at best. 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 At any rate chest x-ray on this admission again showed evidence of mild pulmonary vascular congestion, patient was noted to have 2+ bipedal edema, and I believe the presentation is mostly a presentation of congestive heart failure secondary to systolic dysfunction, and it is mostly biventricular nature. Not to mention the obstructive sleep apnea syndrome is probably making his symptoms worse. Patient was reevaluated today on 01/20/2017, apparently the patient developed acute kidney injury with hyponatremia and hyperkalemia which is likely secondary to a combination of diuretics and poor LV function/cardiogenic syndrome. Patient was already seen by nephrology, and they seem to be addressing his acute kidney injury as well as his electrolyte imbalance. I went ahead and I discontinued his Aldactone because of the hyperkalemia and renal failure noted. Pulmonary-centeno we saw him for obstructive sleep apnea syndrome, I tried upon BiPAP, but the patient has difficulty using the BiPAP. Clinically the patient obviously has severe obstructive sleep apnea syndrome which would have to be addressed on an outpatient basis. Labs today showed low sodium of 127 potassium 6.5 BUN jumped up to 42 creatinine jumped up to 2.60. Patient feels worse. Continues to have difficulty falling asleep without any stop breathing episodes, continues to have shortness of breath when he lays flat. Objective - Vital Signs Vital signs: Vital Signs Temp 97.5 F L 01/20/17 08:57 Pulse 70 01/20/17 08:57 Resp 24 01/20/17 08:57 BP 98/72 01/20/17 08:57 Pulse Ox 98 01/20/17 08:57 Intake & Output 01/19/17 01/20/17 01/20/17 18:59 06:59 18:59 Intake Total 880.888 0 Output Total 300 Balance -300 880.888 0 Weight 130.6 kg Intake: Intake, IV Titration 130.888 Amount Amiodarone 450 mg In 130.888 Dextrose 5% in Water 250 ml @ 1 MG/MIN 34.53 mls/ hr IV .[id number] [facility] Rx#: [id number] Oral 750 0 Output: Urine 300 Other: Voiding Method Toilet Toilet Toilet Urinal Urinal Urinal # Voids 1 - Exam Physical Exam: Revealed a 56-year-old obese in no distress, patient was falling asleep easily HEENT:[Neck is supple.] [No neck masses.] [No thyromegaly.] [No JVD.] Crowding of the posterior oropharynx was noted. No neck masses and no goiter noted. Chest: [Minimal fine crackles at the bases, no rhonchi, no wheezes] Cardiac Exam: [Irregular irregular rhythm Normal S1 and S2, no S3 gallop, 2/6 systolic murmur throughout the precordium.] Abdomen: [Soft, nontender, no megaly, no rebound, no guarding, normal bowel sounds.] Extremities: [No clubbing, 2+ bipedal edema, no cyanosis.] Neurological Exam: [No focal neurologic deficit.] - Labs CBC & Chem 7: 01/19/17 01:14 01/20/17 05:47 Labs: Abnormal Lab Results - Last 24 Hours (Table) 01/20/17 Range/Units 05:47 Sodium 127 L (137-145) mmol/L Potassium 6.5 H* (3.5-5.1) mmol/L Chloride 93 L (98-107) mmol/L Carbon Dioxide 20 L (22-30) mmol/L BUN 42 H (9-20) mg/dL Creatinine 2.60 H (0.66-1.25) mg/dL Glucose 136 H (74-99) mg/dL Assessment and Plan Plan: Impression: 1 shortness of breath secondary to mild congestive heart failure secondary to systolic dysfunction and possible ischemic cardiomyopathy. 2 shortness of breath could also be secondary to obstructive sleep apnea syndrome especially when the patient describes stop breathing episodes and loud snoring. Workup for his obstructive sleep apnea is pending and the patient continues to follow-up with Dr. Del Rosario for his issue with sleep. In the meantime the patient needs to lose some weight. 3 history of moderate bronchial asthma currently inactive. 4 clinical obstructive sleep apnea final diagnoses is to be established. 5 history of ADHD 7 history of hypothyroidism 8 history of hypertension 9 restrictive lung physiology based on recent PFT but CT of the chest showed no evidence of interstitial lung disease. 10 acute kidney injury with renal failure, hyponatremia and hyperkalemia related to diuretics and his underlying cardiomyopathy and poor LV function. Recommendation: Agree with the present treatment plan, diuretics are discontinued temporarily, continue bronchodilators, correct hyperkalemia and hyponatremia, prognosis is definitely poor and guarded considering his severe cardiomyopathy. We'll continue to follow. Time with Patient: Less than 30
[2017-01-20] MEDS: FOLIC ACID 1 MG TAB PO SCH (11:17)
[2017-01-20] MEDS: MULTIVITAMINS, THERA 1 EACH TAB PO SCH (11:17)
[2017-01-20] MEDS: THIAMINE 100 MG TAB PO SCH (11:17)
[2017-01-20] MEDS: SODIUM CHLORIDE 0.9% 1,000 ML IV SCH ×2 (11:18→23:35)
--- NOTE | 2017-01-20 13:24 | PN ---
This patient's course over the last 24 hours was reviewed. This patient was nauseated yesterday and he is feeling better now. Denies any orthopnea or PND. Patient did have some episodes of hypotension during the night blood. His blood pressure now is 98/60 mmHg. HEART: S1 and S2 normal. Lungs are fairly clear to auscultation and percussion. Patient did receive 3 or 4 doses of IV Lasix and it has been discontinued. Patient's creatinine was 1.1 on admission, now it is 2.6 and potassium is 6.5. Patient's heart rate now is 75. FINAL IMPRESSION: This patient has developed acute renal failure, which could be secondary to possibly hypovolemia and patient also has hyperkalemia. RECOMMENDATIONS: Patient's lisinopril as well as Aldactone discontinued. Patient's amiodarone drip is discontinued. Because of the nausea, we will hold off all the oral medications and will just give him Lopressor 25 mg b.i.d. We will give the IV fluids at 75 mL/h. At present, patient's heart rate remains controlled. Will repeat the chest x-ray. We will hold of the cardioversion until patient's renal functions have improved. I discussed thoroughly with the patient and his son about the plan.
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
[2017-01-20 15:32] LABS: Calcium 8.6 mg/dL (8.4-10.2); Potassium 5.7 mmol/L (3.5-5.1)
[2017-01-20] MEDS: clonazePAM 0.5 MG TAB PO PRN ×2 (16:41→22:03)
[2017-01-20] MEDS: APIXABAN 2.5 MG TABLET PO SCH (22:04)
[2017-01-20] MEDS: METOPROLOL TARTRATE 25 MG TAB PO SCH (22:04)
[2017-01-21 06:35] LABS: Calcium 8.2 mg/dL (8.4-10.2); Potassium 4.9 mmol/L (3.5-5.1)
[2017-01-21] MEDS: LEVOTHYROXINE 137 MCG TAB PO SCH (06:46)
[2017-01-21] MEDS: PANTOPRAZOLE 40 MG TABLET PO SCH (06:46)
--- NOTE | 2017-01-21 06:57 | XR ---
EXAMINATION TYPE: XR chest 2V DATE OF EXAM: 01/21/2017 6:21 AM HISTORY: chf. REFERENCE: Previous study dated 01/19/2017. FINDINGS: The heart is enlarged. The lungs are clear. Pleural spaces are clear. IMPRESSION: CARDIOMEGALY.
--- NOTE | 2017-01-21 08:41 | PN ---
DATE OF SERVICE: 01/20/2017 PRESENTING COMPLAINT: Tired. INTERVAL HISTORY: This patient presented with CHF exacerbation that was getting diuretics. This morning went into acute renal failure, decreased urine output, also is hyperkalemic. I did order Kayexalate. Patient's LEMUEL inhibitor Aldactone was held and the patient started gentle hydration. Patient also had atrial flutter. Patient's Concerta was discontinued by Dr. Woodard put on Klonopin for his anxiety. Patient's son and daughter at the bedside. Nausea is somewhat better. Patient looks more relaxed. Not eating much. Review systems done for constitutional, cardiovascular, GI, pulmonary; relevant findings as above. Current medications are reviewed that include Eliquis, aspirin, Symbicort, Klonopin, Wellbutrin, Lopressor, IV fluids at 75 mL/h. On examination, temperature 97.6, pulse 72, respirations 18, blood pressure 90/54, pulse ox 100% on 2 L. GENERAL APPEARANCE: Sitting up in a chair, more relaxed. EYES: Pupils equal. Conjunctivae normal. NECK: JVD not raised. Mass not palpable. Respiratory effort increased. LUNGS: Diminished breath sounds. CARDIOVASCULAR: Irregular heart rate, decreased edema. ABDOMEN: Distended, soft. Liver and spleen not palpable. PSYCHIATRY: Alert and oriented x3, less anxious-appearing. INVESTIGATIONS: This morning Sodium 127, potassium 6.5, BUN 42, creatinine 2.60. Repeat potassium was 5.7 and BUN 49, creatinine 3.10. ASSESSMENT: 1. Acute on chronic congestive heart failure from systolic dysfunction; ejection fraction 20%, now stabilized. 2. Atrial flutter, uncontrolled, present on admission. 3. Obesity, body mass index of 39.7. 4. Hyperlipidemia. 5. Essential hypertension. 6. Hypothyroidism. 7. Adjustment disorder. 8. Probably underlying sleep apnea for outpatient work-up. 9. Acute renal failure, acute renal failure, could be an element of acute tubular necrosis including that from hypertension and diuresis. 10. Hyperkalemia from acute renal failure, and drugs associated. 11. Hyponatremia, likely hypovolemic due to excessive diuresis. PLAN: Patient's LEMUEL inhibitor Aldactone was discontinued. Patient is on 75 mL of fluid. Patient encouraged to increase oral intake. Since the oral intake is not good, will increase his IV fluids to 100 mL/h, got to be cautious about the same. Care was discussed with the patient and his son at the bedside. Will repeat 30 gm of Kayexalate.
--- NOTE | 2017-01-21 09:15 | P.PN ---
Subjective Patient is seen in follow-up for acute kidney injury. His baseline creatinine is near 1 and peaked at 3.1 this admission. It is improved to 2.7 today. Patient presented with shortness of breath along with nausea and vomiting. He was also hypotensive with systolic blood pressure in the 80s. He was initially receiving IV diuretics which are now held. He is currently maintained on normal saline running at 75 mL an hour. His appetite is starting to improve. Admits to good urine output. Denies chest pain or shortness of breath. He does have systolic CHF with ejection fraction of 25%. Vital signs are stable. General: The patient appeared well nourished and normally developed. HEENT: Head exam is unremarkable. Neck is without jugular venous distension. LUNGS: Lungs are clear to auscultation and percussion. Breath sounds decreased. HEART: Rate and Rhythm are regular. First and second heart sounds normal. No murmurs, rubs or gallops. ABDOMEN: Abdominal exam reveals normal bowel sounds. Non-tender and non- distended. No evidence of peritonitis. EXTREMITITES: Trace edema. Objective - Vital Signs Vital signs: Vital Signs Temp 97.2 F L 01/21/17 04:00 Pulse 100 01/21/17 04:00 Resp 16 01/21/17 04:00 BP 100/71 01/21/17 04:00 Pulse Ox 93 L 01/21/17 04:00 Intake & Output 01/20/17 01/21/17 01/21/17 18:59 06:59 18:59 Intake Total 0 1800 Output Total 550 Balance 0 1800 -550 Weight 132.2 kg Intake: Intake, IV Titration 1200 Amount Sodium Chloride 0.9% 1, 1200 000 ml @ 75 mls/hr IV . [id number] [facility] Rx#:[id number] Oral 0 600 Output: Urine 550 Other: Voiding Method Toilet Toilet Urinal Urinal # Voids 2 - Labs CBC & Chem 7: 01/19/17 01:14 01/21/17 05:35 Labs: Abnormal Lab Results - Last 24 Hours (Table) 01/20/17 01/21/17 Range/Units 14:46 05:35 Sodium 127 L 128 L (137-145) mmol/L Potassium 5.7 H (3.5-5.1) mmol/L Chloride 90 L 91 L (98-107) mmol/L BUN 49 H 56 H (9-20) mg/dL Creatinine 3.10 H 2.70 H (0.66-1.25) mg/dL Glucose 65 L (74-99) mg/dL Calcium 8.2 L (8.4-10.2) mg/dL Assessment and Plan Plan: Assessment: #1. Nonoliguric acute kidney injury mostly prerenal in nature secondary to diuretics. Improving. Creatinine down to 2.7 today. Baseline creatinine near 1. #2. Hypovolemic hyponatremia. Improving with IV hydration. #3. Systolic CHF with ejection fraction of 25%. #4. Hyperkalemia secondary to acute kidney injury as well as from the use of LEMUEL inhibitor and Aldactone. Resolved. Next Plan: Check urinalysis. Check renal ultrasound. Check postvoid residual. Decrease rate of IV fluids to 50 mL an hour. Avoid nephrotoxic agents and hypotensive episodes. Diuretics held for now. Encourage oral intake. Repeat electrolytes in the morning.
[2017-01-21] MEDS: SYMBICORT 160-4.5 MCG INHALER INHALATION SCH ×2 (09:21→23:12)
[2017-01-21] MEDS: SODIUM CHLORIDE 0.9% 1,000 ML IV SCH ×2 (09:28→15:49)
--- NOTE | 2017-01-21 09:30 | US ---
EXAMINATION TYPE: US kidneys/renal and bladder DATE OF EXAM: 01/21/2017 9:14 AM COMPARISON: NONE CLINICAL HISTORY: burt. EXAM MEASUREMENTS: Right Kidney: 11.5 x 6.3 x 6.0 cm Left Kidney: 12.0 x 6.5 x 6.9 cm Post Void Residual Volume: Post void not done. Pt stated floor was measuring urine output. mL Right Kidney: wnl Left Kidney: Medial, mid pole solid area = 3.9 x 4.8 x 3.8 cm, ? mass vs normal renal tissue Bladder: wnl Bilateral Jets seen: Right side only There is no evidence for hydronephrosis at this point in time. No nephrolithiasis is seen. No allen s are identified. The urinary bladder is anechoic. Bilateral ureteral jets are seen. IMPRESSION: QUESTIONABLE 3.9 CM MASS RIGHT MID POLAR REGION OF THE LEFT KIDNEY. FURTHER IMAGING WITH CT OR MR WOU LD BE SUGGESTED.
[2017-01-21] MEDS: ASPIRIN 81 MG CHEW PO SCH (09:45)
[2017-01-21] MEDS: buPROPion XL 150 MG TAB.ER.24H PO SCH (09:45)
[2017-01-21] MEDS: APIXABAN 2.5 MG TABLET PO SCH ×2 (09:45→21:01)
[2017-01-21] MEDS: MONTELUKAST 10 MG TAB PO SCH (09:46)
[2017-01-21] MEDS: METOPROLOL TARTRATE 25 MG TAB PO SCH ×2 (09:46→21:01)
[2017-01-21] MEDS: THIAMINE 100 MG TAB PO SCH (09:48)
[2017-01-21] MEDS: FOLIC ACID 1 MG TAB PO SCH (09:49)
[2017-01-21] MEDS: MULTIVITAMINS, THERA 1 EACH TAB PO SCH (09:49)
--- NOTE | 2017-01-21 12:22 | P.PN ---
Subjective Progress note dated 01/21/2017 This is a patient who was admitted back on January 19. He came in with acute kidney injury and hyponatremia as well as hyperkalemia. The patient was seen by nephrology. From the pulmonary standpoint, he has a history of sleep apnea syndrome. The patient was tried on BiPAP by my partner but apparently he gave him some difficulty.anyway, the patient seemed to be resting comfortably. No major complaints today. No chest pain chest discomfort shortness breath cough phlegm production or any other complaints for that matter. He was lying on his stomach sleeping when I first went into the room. I had to actually wake him up. Objective - Vital Signs Vital signs: Vital Signs Temp 98.1 F 01/21/17 08:00 Pulse 75 01/21/17 08:00 Resp 18 01/21/17 08:00 BP 118/73 01/21/17 08:00 Pulse Ox 95 01/21/17 08:00 Intake & Output 01/20/17 01/21/17 01/21/17 18:59 06:59 18:59 Intake Total 0 1800 Output Total 550 Balance 0 1800 -550 Weight 132.2 kg Intake: Intake, IV Titration 1200 Amount Sodium Chloride 0.9% 1, 1200 000 ml @ 75 mls/hr IV . [id number] [facility] Rx#:[id number] Oral 0 600 Output: Urine 550 Other: Voiding Method Toilet Toilet Urinal Urinal # Voids 2 - Exam No acute distress, oriented 3. HEENT examination is grossly unremarkable. Mucous membranes are moist. Neck supple. Full range of motion. No thyromegaly or adenopathy. Neck veins are flat. Cardio vascular examination reveals distant heart sounds. S1-S2 normal. No S3- S4 or murmur. Lungs reveal relatively clear breath sounds. No wheezes or rhonchi. No crackles. No adventitious lung sounds for that matter. Abdomen soft bowel sounds are heard. Extremities are intact. Mild edema. - Labs CBC & Chem 7: 01/19/17 01:14 01/21/17 05:35 Labs: Abnormal Lab Results - Last 24 Hours (Table) 01/20/17 01/21/17 Range/Units 14:46 05:35 Sodium 127 L 128 L (137-145) mmol/L Potassium 5.7 H (3.5-5.1) mmol/L Chloride 90 L 91 L (98-107) mmol/L BUN 49 H 56 H (9-20) mg/dL Creatinine 3.10 H 2.70 H (0.66-1.25) mg/dL Glucose 65 L (74-99) mg/dL Calcium 8.2 L (8.4-10.2) mg/dL Assessment and Plan Plan: assessment CHF Sleep apnea syndrome chronic bronchial asthma, quiesced. ADHD Hypothyroidism Hypertension Restrictive lung disease. Acute kidney injury. Plan From the pulmonary standpoint the patient seemed be doing relatively well. Follow-up in our office as recommended. Probably should see Dr. Del Rosario for his sleep apnea syndrome. We'll continue to follow. Prognosis is guarded. Labs x-rays medications are reviewed. Time with Patient: Less than 30
[2017-01-21 12:56] LABS: Appearance,Urine Clear (Clear); Bilirubin,Urine Negative (Negative); Glucose,Urine (UA) Negative (Negative); Ketones,Urine Negative (Negative); Leukocyte Esterase,Urine Negative (Negative); Nitrite,Urine Negative (Negative); PH, Urine 5.5 (5.0-8.0); Protein,Urine Negative (Negative); Specific Gravity,Urine 1.006 (1.001-1.035); UA Billing (MACRO vs. MICRO) CHEM; Urobilinogen,Urine <2.0 mg/dL (<2.0)
--- NOTE | 2017-01-21 13:48 | P.PN ---
Subjective Principal diagnosis: Shortness of breath This is a 56-year-old gentleman who follows with Dr. Woodard in the office. Was recently discharged from the hospital at which time he was treated for atrial flutter with rapid ventricular response and found to have an ejection fraction of 20-25%. He also has a history of asthma, hypertension, thyroid disorder and questionable history of obstructive sleep apnea for which she is awaiting further follow-up. Presented to the emergency department with complaints of increasing shortness of breath while lying flat. He also has complaints of intermittent dyspnea on exertion as well as lower extremity edema. EKG also showed patient to be in atrial flutter with rapid ventricular response, he was initiated on IV amiodarone. Patient was recently started on by mouth amiodarone in the office by Dr. Woodard. Patient was scheduled to undergo a SHEILA with cardioversion as well as cardiac catheterization to rule out ischemic cardiomyopathy, this had been deferred at this time because of abnormal renal function yesterday. Patient states since yesterday he's been urinating quite a bit, his Lasix, lisinopril and Aldactone had been discontinued. Delphine 2.7 today down from 3.1 yesterday, sodium up to 128. Blood pressure today 96/60 with a heart rate in the 70s. Patient did undergo an ultrasound of the kidneys and bladder which revealed a questionable 3.9 cm mass at the right mid polar region of the left kidney. Further imaging with CT or MR would be suggested. At this point we will continue with IV fluids at 50 mL an hour, check lytes BUN and creatinine in the morning and plan on possible SHEILA and cardioversion on Saturday depending on how the patient does overall. This was discussed with the patient and his daughter in detail. Objective - Vital Signs Vital signs: Vital Signs Temp 97.0 F L 01/21/17 12:00 Pulse 78 01/21/17 12:00 Resp 16 01/21/17 12:00 BP 96/61 01/21/17 12:00 Pulse Ox 95 01/21/17 12:00 Intake & Output 01/20/17 01/21/17 01/21/17 18:59 06:59 18:59 Intake Total 0 1800 Output Total 550 Balance 0 1800 -550 Weight 132.2 kg Intake: Intake, IV Titration 1200 Amount Sodium Chloride 0.9% 1, 1200 000 ml @ 75 mls/hr IV . [id number] [facility] Rx#:[id number] Oral 0 600 Output: Urine 550 Other: Voiding Method Toilet Toilet Urinal Urinal # Voids 2 - Exam PHYSICAL EXAMINATION: HEENT: Head is atraumatic, normocephalic. Pupils equal, round. Neck is supple. There is no elevated jugular venous pressure. HEART EXAMINATION: Heart sounds irregularly irregular . CHEST EXAMINATION: Lungs are clear to auscultation and precussion. No chest wall tenderness is noted on palpation or with deep breathing. ABDOMEN: Soft, nontender. Bowel sounds are heard. No organomegaly noted. EXTREMITIES: 1+ peripheral pulses with evidence of trace to 1+ peripheral edema and no calf tenderness noted. NEUROLOGIC patient is awake, alert and oriented x3. . - Labs CBC & Chem 7: 01/19/17 01:14 01/21/17 05:35 Labs: Abnormal Lab Results - Last 24 Hours (Table) 01/20/17 01/21/17 Range/Units 14:46 05:35 Sodium 127 L 128 L (137-145) mmol/L Potassium 5.7 H (3.5-5.1) mmol/L Chloride 90 L 91 L (98-107) mmol/L BUN 49 H 56 H (9-20) mg/dL Creatinine 3.10 H 2.70 H (0.66-1.25) mg/dL Glucose 65 L (74-99) mg/dL Calcium 8.2 L (8.4-10.2) mg/dL Assessment and Plan (1) Atrial flutter, paroxysmal Status: Acute (2) Systolic CHF, acute on chronic Status: Acute (3) Cardiomyopathy Status: Acute (4) HTN (hypertension) Status: Acute (5) Hypothyroid Status: Acute Plan: From cardiology's perspective, we'll continue IV fluids at 50 mL per hour. Check lytes BUN and creatinine in the morning. Depending on how the patient feels in the morning and the results of the electrolytes and creatinine, we may plan on proceeding with SHEILA and cardioversion on Saturday. DNP note has been reviewed, I agree with a documented findings and plan of care. Patient was seen and examined.
[2017-01-21 15:49] VITALS: BMI 40.6
[2017-01-21] MEDS: clonazePAM 0.5 MG TAB PO PRN (21:04)
--- NOTE | 2017-01-21 23:15 | PN ---
DATE OF SERVICE: 01/21/2017 PRESENTING COMPLAINT: Tired. INTERVAL HISTORY: This patient presented with CHF exacerbation. He was getting diuretics, then went into acute renal failure. Patient also had hyperkalemia, for which he did receive medications. Patient also was in atrial flutter. Patient is having extreme anxiety and his Concerta was discontinued. He was really doing better with this medication. Actually patient slept rather well, he says. Did eat a little bit better. Review of systems done for constitutional, cardiovascular, GI, pulmonary; relevant findings as above. Current medications are reviewed that include normal saline at 50 mL/hour. On examination, temperature 97, pulse 78, respiration 16, blood pressure 96/61, pulse ox 95% on room air. GENERAL APPEARANCE: Lying in bed, somnolent but arousable and talks. EYES: Pupils equal. Conjunctivae normal. NECK: JVD not raised. Mass not palpable. RESPIRATORY: Effort increased. LUNGS: Decreased breath sounds. CARDIOVASCULAR: Heart sounds irregular. Decreased edema. ABDOMEN: Soft, nontender. Liver and spleen not palpable. PSYCHIATRY: Somnolent but arousable and able to talk. INVESTIGATIONS: Sodium 128, potassium 4.9. BUN 56, creatinine 2.70. Serum osmolality is 283. ASSESSMENT: 1. Acute on chronic congestive heart failure from systolic dysfunction; ejection fraction 20%, from hypertensive heart disease, stabilized. 2. Atrial flutter, uncontrolled on presentation; doing better now. 3. Obesity; body mass index of 39.7. 4. Hyperlipidemia. 5. Essential hypertension. 6. Hypothyroidism. 7. Adjustment disorder. 8. Outpatient workup for sleep apnea. 9. Acute renal failure; could be prerenal/acute tubular necrosis and medication-induced, slow to respond. 10. Hyperkalemia with acute renal failure, drug-associated, improving. 11. Hyponatremia, hypo-osmolar, due to excessive diuresis. 12. Sleep deprivation with exhaustion. PLAN: Continue with gentle hydration. Care was discussed with the patient. Electrolytes will be followed closely. The current medications seem to be working fine. Follow labs closely.
[2017-01-22 06:44] LABS: Anion Gap 9 mmol/L; Blood Urea Nitrogen 32 mg/dL (9-20); Calcium 8.1 mg/dL (8.4-10.2); Carbon Dioxide 25 mmol/L (22-30); Chloride 98 mmol/L (98-107); Glucose 106 mg/dL (74-99); Non-African American GFR(MDRD) 52 (>60 ml/min/1.73 sqM); Potassium 4.4 mmol/L (3.5-5.1); Sodium 132 mmol/L (137-145)
[2017-01-22] MEDS: LEVOTHYROXINE 137 MCG TAB PO SCH (06:50)
[2017-01-22] MEDS: PANTOPRAZOLE 40 MG TABLET PO SCH (06:51)
[2017-01-22] MEDS: SYMBICORT 160-4.5 MCG INHALER INHALATION SCH (08:10)
[2017-01-22] MEDS: POLYETHYLENE GLYCOL 3350 17 GM POWD.PACK PO SCH (08:55)
[2017-01-22] MEDS: METOPROLOL TARTRATE 25 MG TAB PO SCH ×2 (08:56→21:31)
[2017-01-22] MEDS: FOLIC ACID 1 MG TAB PO SCH (08:57)
[2017-01-22] MEDS: buPROPion XL 150 MG TAB.ER.24H PO SCH (08:57)
[2017-01-22] MEDS: THIAMINE 100 MG TAB PO SCH (08:57)
[2017-01-22] MEDS: MONTELUKAST 10 MG TAB PO SCH (08:57)
[2017-01-22] MEDS: MULTIVITAMINS, THERA 1 EACH TAB PO SCH (08:57)
[2017-01-22] MEDS: APIXABAN 2.5 MG TABLET PO SCH (08:57)
[2017-01-22] MEDS: ASPIRIN 81 MG CHEW PO SCH (08:58)
--- NOTE | 2017-01-22 09:30 | P.PN ---
Subjective Patient is seen in follow-up for acute kidney injury. His baseline creatinine is near 1 and peaked at 3.1 this admission. It is improved to 1.4 today. Patient presented with shortness of breath along with nausea and vomiting. He was also hypotensive with systolic blood pressure in the 80s. He was initially receiving IV diuretics which are now held. He is currently maintained on normal saline running at 50 mL an hour. His appetite is starting to improve although he does not like hospital food. Admits to good urine output. Denies chest pain or shortness of breath. He does have systolic CHF with ejection fraction of 25%. Vital signs are stable. General: The patient appeared well nourished and normally developed. HEENT: Head exam is unremarkable. Neck is without jugular venous distension. LUNGS: Lungs are clear to auscultation and percussion. Breath sounds decreased. HEART: Rate and Rhythm are regular. First and second heart sounds normal. No murmurs, rubs or gallops. ABDOMEN: Abdominal exam reveals normal bowel sounds. Non-tender and non- distended. No evidence of peritonitis. EXTREMITITES: Trace edema. Objective - Vital Signs Vital signs: Vital Signs Temp 98.0 F 01/22/17 08:00 Pulse 65 01/22/17 08:00 Resp 16 01/22/17 08:00 BP 97/58 01/22/17 08:00 Pulse Ox 95 01/22/17 08:00 Intake & Output 01/21/17 01/22/17 01/22/17 18:59 06:59 18:59 Intake Total 508 1450 237 Output Total 550 800 Balance -42 650 237 Weight 132.2 kg 131.5 kg Intake: IV 508 400 Sodium Chloride 0.9% 1, 508 400 000 ml @ 50 mls/hr IV . Q20H [facility] Rx#:[id number] Oral 1050 237 Output: Urine 550 800 Other: Voiding Method Toilet Urinal - Labs CBC & Chem 7: 01/19/17 01:14 01/22/17 05:30 Labs: Abnormal Lab Results - Last 24 Hours (Table) 01/22/17 Range/Units 05:30 Sodium 132 L (137-145) mmol/L BUN 32 H (9-20) mg/dL Creatinine 1.40 H (0.66-1.25) mg/dL Glucose 106 H (74-99) mg/dL Calcium 8.1 L (8.4-10.2) mg/dL Assessment and Plan Plan: Assessment: #1. Nonoliguric acute kidney injury mostly prerenal in nature secondary to diuretics. Improving. Creatinine down to 1.4 today. Baseline creatinine near 1. Urinalysis is benign. Renal ultrasound revealed no hydronephrosis. #2. Hypovolemic hyponatremia. Improving with IV hydration. #3. Systolic CHF with ejection fraction of 25%. #4. Hyperkalemia secondary to acute kidney injury as well as from the use of LEMUEL inhibitor and Aldactone. Resolved. #5. Left kidney mass. Plan: Hep-Lock IV fluids. Avoid nephrotoxic agents and hypotensive episodes. Diuretics held for now. Encourage oral intake. Repeat electrolytes in the morning. Consider urology consultation for kidney mass. Scheduled for SHEILA tomorrow.
[2017-01-22] MEDS ORDERED: SODIUM CHLORIDE 0.9% 1,000 ML IV SCH (11:15)
--- NOTE | 2017-01-22 12:20 | P.PN ---
Subjective Principal diagnosis: Shortness of breath This is a 56-year-old gentleman who follows with Dr. Woodard in the office. Was recently discharged from the hospital at which time he was treated for atrial flutter with rapid ventricular response and found to have an ejection fraction of 20-25%. He also has a history of asthma, hypertension, thyroid disorder and questionable history of obstructive sleep apnea for which she is awaiting further follow-up. Presented to the emergency department with complaints of increasing shortness of breath while lying flat. He also has complaints of intermittent dyspnea on exertion as well as lower extremity edema. EKG also showed patient to be in atrial flutter with rapid ventricular response, he was initiated on IV amiodarone. Patient was recently started on by mouth amiodarone in the office by Dr. Woodard. Patient was scheduled to undergo a SHEILA with cardioversion as well as cardiac catheterization to rule out ischemic cardiomyopathy, this had been deferred at this time because of abnormal renal function. Creatinine today is 1.4. Blood pressure 108/70, heart rate in the 60s to 70s continues to be in atrial flutter. Patient will be scheduled tomorrow to undergo transesophageal echocardiographic study and elective cardioversion. Risks and benefits of the procedure were explained to the patient and his daughter in detail. Objective - Vital Signs Vital signs: Vital Signs Temp 98.1 F 01/22/17 11:36 Pulse 59 L 01/22/17 11:36 Resp 18 01/22/17 11:36 BP 108/71 01/22/17 11:36 Pulse Ox 96 01/22/17 11:36 Intake & Output 01/21/17 01/22/17 01/22/17 18:59 06:59 18:59 Intake Total 508 1450 418 Output Total 550 800 Balance -42 650 418 Weight 132.2 kg 131.5 kg Intake: IV 508 400 181 Sodium Chloride 0.9% 1, 508 400 181 000 ml @ 50 mls/hr IV . Q20H [facility] Rx#:[id number] Oral 1050 237 Output: Urine 550 800 Other: Voiding Method Toilet Urinal - Exam PHYSICAL EXAMINATION: HEENT: Head is atraumatic, normocephalic. Pupils equal, round. Neck is supple. There is no elevated jugular venous pressure. HEART EXAMINATION: Heart sounds irregularly irregular . CHEST EXAMINATION: Lungs are clear to auscultation and precussion. No chest wall tenderness is noted on palpation or with deep breathing. ABDOMEN: Soft, nontender. Bowel sounds are heard. No organomegaly noted. EXTREMITIES: 1+ peripheral pulses with evidence of trace to 1+ peripheral edema and no calf tenderness noted. NEUROLOGIC patient is awake, alert and oriented x3. . - Labs CBC & Chem 7: 01/19/17 01:14 01/22/17 05:30 Labs: Abnormal Lab Results - Last 24 Hours (Table) 01/22/17 Range/Units 05:30 Sodium 132 L (137-145) mmol/L BUN 32 H (9-20) mg/dL Creatinine 1.40 H (0.66-1.25) mg/dL Glucose 106 H (74-99) mg/dL Calcium 8.1 L (8.4-10.2) mg/dL Assessment and Plan (1) Atrial flutter, paroxysmal Status: Acute (2) Systolic CHF, acute on chronic Status: Acute (3) Cardiomyopathy Status: Acute (4) HTN (hypertension) Status: Acute (5) Hypothyroid Status: Acute Plan: From cardiology's perspective, we'll continue IV fluids at 50 mL per hour. Check lytes BUN and creatinine in the morning. Schedule the patient for transesophageal echocardiographic study and elective cardioversion tomorrow. DNP note has been reviewed, I agree with a documented findings and plan of care. Patient was seen and examined.
--- NOTE | 2017-01-22 12:37 | P.PN ---
Progress Note - Text This is an addendum to the progress note dictated earlier today. Now that the patient's creatinine is close to normal, we will increase the dose of Eliquis 25 mg one tablet by mouth twice a day and discontinue the aspirin. DNP note has been reviewed, I agree with a documented findings and plan of care. Patient was seen and examined.
--- NOTE | 2017-01-22 13:07 | P.PN ---
Progress Note - Text PATIENT WAS SEEN FOR PSYCHIATRIC FOLLOW_UP Interval history: The patient reports that he has been sleeping 6-8 hours with Klonopin,talked about upcoming test on 01/23 and expressed some anticipatory anxiety ,endorses that he has been more tired since hospitalization and I discussed with him that I do not recommend any [employer] stimulant as it is affecting his heart and triggering more anxiety ,patient replied "I USED TO TAKE IT FOR YEARS BUT I AM WILLING TO GIVE IT UP IF AFFECTING MY HEALTH" Patient stated that his daughter wants him to stay with her after discharge but "I AM MISSING MY HOME"" Mental status exam: The patient is alert , contact is appropriate speech is fluent. He continues to endorse some symptoms of anxiety related to his physical health ,he denies suicidal or homicidal ideation intent or plan. There is no evidence of psychosis he does not present hypomanic or manic. No abnormal involuntary movements observed. He is oriented to person place and date. He is able to demonstrate some range of expression in terms of affect. Plan: The patient will continue on his current medication. Refer to [facility] when medically cleared
--- NOTE | 2017-01-22 14:11 | P.PN ---
Subjective Progress note dated 01/21/2017 This is a patient who was admitted back on January 19. He came in with acute kidney injury and hyponatremia as well as hyperkalemia. The patient was seen by nephrology. From the pulmonary standpoint, he has a history of sleep apnea syndrome. The patient was tried on BiPAP by my partner but apparently he gave him some difficulty.anyway, the patient seemed to be resting comfortably. No major complaints today. No chest pain chest discomfort shortness breath cough phlegm production or any other complaints for that matter. He was lying on his stomach sleeping when I first went into the room. I had to actually wake him up. Progress note dated 01/22/2017 The patient is doing well from the pulmonary standpoint. He apparently does have a history suggestive of sleep apnea syndrome and has apparently had the visit to Dr. June but is not actually had these sleep study as yet.The patient is to apparently have a transesophageal echo with a possible ablation.he seemed be doing relatively well. Feeling generally well. No major complaints from our standpoint. No chest pain discomfort. No fever no chills. No nausea vomiting or diarrhea. Objective - Vital Signs Vital signs: Vital Signs Temp 98.1 F 01/22/17 11:36 Pulse 59 L 01/22/17 11:36 Resp 18 01/22/17 11:36 BP 108/71 01/22/17 11:36 Pulse Ox 96 01/22/17 11:36 Intake & Output 01/21/17 01/22/17 01/22/17 18:59 06:59 18:59 Intake Total 508 1450 418 Output Total 550 800 Balance -42 650 418 Weight 132.2 kg 131.5 kg Intake: IV 508 400 181 Sodium Chloride 0.9% 1, 508 400 181 000 ml @ 50 mls/hr IV . Q20H [facility] Rx#:[id number] Oral 1050 237 Output: Urine 550 800 Other: Voiding Method Toilet Urinal - Exam No acute distress, oriented 3. HEENT examination is grossly unremarkable. Mucous membranes are moist. Neck supple. Full range of motion. No thyromegaly or adenopathy. Neck veins are flat. Cardio vascular examination reveals distant heart sounds. S1-S2 normal. No S3- S4 or murmur. Lungs reveal relatively clear breath sounds. No wheezes or rhonchi. No crackles. No adventitious lung sounds for that matter. Abdomen soft bowel sounds are heard. Extremities are intact. Mild edema. - Labs CBC & Chem 7: 01/19/17 01:14 01/22/17 05:30 Labs: Abnormal Lab Results - Last 24 Hours (Table) 01/22/17 Range/Units 05:30 Sodium 132 L (137-145) mmol/L BUN 32 H (9-20) mg/dL Creatinine 1.40 H (0.66-1.25) mg/dL Glucose 106 H (74-99) mg/dL Calcium 8.1 L (8.4-10.2) mg/dL Assessment and Plan (1) Atrial fibrillation with RVR Status: Acute (2) Cardiomyopathy Status: Acute (3) Congestive heart failure Status: Acute (4) HTN (hypertension) Status: Acute (5) Hypothyroid Status: Acute (6) Systolic CHF, acute on chronic Status: Acute Plan: assessment CHF Sleep apnea syndrome chronic bronchial asthma, quiescent ADHD Hypothyroidism Hypertension Restrictive lung disease. Acute kidney injury. Plan From the pulmonary standpoint the patient seemed be doing relatively well. Follow-up in our office as recommended. Probably should see Dr. Del Rosario for his sleep apnea syndrome. We'll continue to follow. Prognosis is guarded. Labs x-rays medications are reviewed. Plan dated 01/22/2017 This 56-year-old male with a history of heart failure sleep apnea syndrome chronic bronchial asthma and ADHD hypothyroidism hypertension and restrictive lung disease obesity and acute kidney injury is doing well. He apparently scheduled to have a SHEILA in the near future with cardiology. We'll follow. We' ll make sure the patient follows up with Dr. June in our office for his sleep study evaluation. Time with Patient: Less than 30
--- NOTE | 2017-01-22 20:20 | PN ---
DATE OF SERVICE: 01/18/2017 PRESENTING COMPLAINT: Tired. INTERVAL HISTORY: This patient presented with CHF exacerbation, was getting diuresis, went into acute renal failure. Also had hyperkalemia. Patient has been in atrial flutter. Patient also has had extreme anxiety. Concerta was discontinued. Patient is doing much better. Anxiety is better controlled; actually sleeping better. Patient is looking to get a SHEILA tomorrow per Cardiology. Review of systems done for constitutional, cardiovascular, GI, pulmonary; relevant findings as above. Current medications are reviewed that include Eliquis, Symbicort, Klonopin, [place], Synthroid. On examination, temperature 98.1, pulse 59, respiration 18, blood pressure 108/71, pulse ox 96% on room air. GENERAL APPEARANCE: Sitting up on a chair. More comfortable. EYES: Pupils equal. Conjunctivae normal. NECK: JVD not raised. Mass not palpable. RESPIRATORY: Effort increased. LUNGS: Decreased breath sounds. CARDIOVASCULAR: Heart sounds irregular. Edema present. ABDOMEN: Soft, nontender. Liver and spleen not palpable. PSYCHIATRY: Awake. Answering questions. INVESTIGATIONS: Sodium 132, potassium 4.4. BUN 32, creatinine 1.4. ASSESSMENT: 1. Acute on chronic congestive heart failure from systolic dysfunction; ejection fraction 20%; from hypertensive heart disease, improved. 2. Atrial flutter, persistent. 3. Obesity; body mass index of 39.7. 4. Hyperlipidemia. 5. Essential hypertension. 6. Hypothyroidism. 7. Adjustment disorder. 8. Outpatient workup for sleep apnea. 9. Acute renal failure, probably acute tubular necrosis and medication-induced; some improvement. 10. Hyperkalemia with acute renal failure and drug-associated, improved. 11. Hyponatremia, hypo-osmolar, due to excessive diuresis. 12. Sleep deprivation with exhaustion, improving. PLAN: I had a long talk with her daughter. Daughter is at the bedside. Renal function is actually coming along better. Patient will have a SHEILA tomorrow along with cardioversion.
[2017-01-22] MEDS: clonazePAM 0.5 MG TAB PO PRN (21:32)
[2017-01-22] MEDS: APIXABAN 5 MG TAB PO SCH (21:34)
[2017-01-23] MEDS: SYMBICORT 160-4.5 MCG INHALER INHALATION SCH (05:59)
[2017-01-23 07:06] LABS: Anion Gap 10 mmol/L; Blood Urea Nitrogen 21 mg/dL (9-20); Calcium 8.6 mg/dL (8.4-10.2); Carbon Dioxide 25 mmol/L (22-30); Chloride 101 mmol/L (98-107); Glucose 85 mg/dL (74-99); Non-African American GFR(MDRD) >60 (>60 ml/min/1.73 sqM); Potassium 5.1 mmol/L (3.5-5.1); Sodium 136 mmol/L (137-145)
[2017-01-23] MEDS ORDERED: PROPOFOL 10 MG/ML 20 ML VIAL IV ONE (07:36)
[2017-01-23] MEDS ORDERED: LIDOCAINE 1% INJ 10MG/ML (20 ML MDV) ONE (07:36)
[2017-01-23] MEDS ORDERED: IV FLUID CONTINUATION 1,000 ML IV ONE (07:39)
--- NOTE | 2017-01-23 08:21 | ECHOT ---
DATE OF SERVICE: INDICATION: Evaluation of left atrial appendage. PROCEDURE: After explaining the procedure to patient as well as the risks and the complications, his blood pressure, heart rate, O2 saturation were monitored. He received sedation per anesthesia department. The throat was sprayed with Cetacaine. The probe was introduced into the esophagus without difficulty. Images were complication. Following that, the probe was removed. There was no immediate complication. FINDINGS: Biatrial enlargement was noted. Left atrial appendage is normal. Left ventricular size is dilated with severe global hypokinesis with ejection fraction of 20%. The aortic valve, mitral valve and tricuspid valve are normal. Descending thoracic aortic appears to be normal. No pericardial effusion was noted. Contrast bubble study revealed no evidence of shunting across the interatrial septum. Doppler pulse wave and color Doppler obtained revealed mild mitral and tricuspid regurgitation with no evidence of shunting by color Doppler study. CONCLUSION: 1. Biatrial enlargement. 2. Normal appearance of left atrial appendage. 3. Severely dilated left ventricle with severe global hypokinesis. 4. Mild mitral and tricuspid regurgitation. 5. No evidence of shunting by color Doppler study and contrast bubble study.
--- NOTE | 2017-01-23 08:23 | CE ---
DATE OF SERVICE: CARDIOVERSION PROCEDURE NOTE INDICATION: Atrial fibrillation. After explaining the procedure to patient as well as the risks and the complications, after performing transesophageal echocardiogram and with the help of the anesthesia department and obtaining the sedated, a biphasic synchronized cardioversion with 200, 300 and subsequently 360 joules were successful in restoring normal sinus rhythm. There was no immediate complication.
[2017-01-23] MEDS: buPROPion XL 150 MG TAB.ER.24H PO SCH (08:58)
[2017-01-23] MEDS: MONTELUKAST 10 MG TAB PO SCH (08:59)
[2017-01-23] MEDS: METOPROLOL TARTRATE 25 MG TAB PO SCH ×2 (08:59→20:32)
[2017-01-23] MEDS: PANTOPRAZOLE 40 MG TABLET PO SCH (08:59)
[2017-01-23] MEDS: LEVOTHYROXINE 137 MCG TAB PO SCH (08:59)
[2017-01-23] MEDS: APIXABAN 5 MG TAB PO SCH ×2 (08:59→20:32)
[2017-01-23] MEDS: POLYETHYLENE GLYCOL 3350 17 GM POWD.PACK PO SCH (09:00)
--- NOTE | 2017-01-23 09:23 | P.PN ---
Subjective Patient is seen in follow-up for acute kidney injury. His baseline creatinine is near 1 and peaked at 3.1 this admission. It is improved to 1.0 today. Patient presented with shortness of breath along with nausea and vomiting. He was also hypotensive with systolic blood pressure in the 80s. He was initially receiving IV diuretics which are now held. He then received IV fluids which are also now discontinued. His appetite is starting to improve although he does not like hospital food. Admits to good urine output. Denies chest pain or shortness of breath. He does have systolic CHF with ejection fraction of 20% . Vital signs are stable. General: The patient appeared well nourished and normally developed. HEENT: Head exam is unremarkable. Neck is without jugular venous distension. LUNGS: Lungs are clear to auscultation and percussion. Breath sounds decreased. HEART: Rate and Rhythm are regular. First and second heart sounds normal. No murmurs, rubs or gallops. ABDOMEN: Abdominal exam reveals normal bowel sounds. Non-tender and non- distended. No evidence of peritonitis. EXTREMITITES: Trace edema. Objective - Vital Signs Vital signs: Vital Signs Temp 96.9 F L 01/23/17 04:00 Pulse 80 01/23/17 08:26 Resp 16 01/23/17 08:26 BP 116/84 01/23/17 08:26 Pulse Ox 96 01/23/17 08:26 Intake & Output 01/22/17 01/23/17 01/23/17 18:59 06:59 18:59 Intake Total 991 300 Output Total 250 Balance 741 300 Weight 131 kg Intake: IV 237 200 Sodium Chloride 0.9% 1, 237 000 ml @ 50 mls/hr IV . Q20H [facility] Rx#:[id number] Oral 754 100 Output: Urine 250 Other: Voiding Method Toilet Urinal # Voids 0 - Labs CBC & Chem 7: 01/19/17 01:14 01/23/17 06:18 Labs: Abnormal Lab Results - Last 24 Hours (Table) 01/23/17 Range/Units 06:18 Sodium 136 L (137-145) mmol/L BUN 21 H (9-20) mg/dL Assessment and Plan Plan: Assessment: #1. Nonoliguric acute kidney injury mostly prerenal in nature secondary to diuretics. Improving. Creatinine down to 1.0 today. Baseline creatinine near 1. Urinalysis is benign. Renal ultrasound revealed no hydronephrosis. #2. Hypovolemic hyponatremia. Improving with IV hydration. #3. Systolic CHF with ejection fraction of 20%. #4. Hyperkalemia secondary to acute kidney injury as well as from the use of LEMUEL inhibitor and Aldactone. Resolved. #5. Left kidney mass. #6. Atrial fibrillation status post cardioversion January 23. Plan: Hep-Lock IV fluids. Avoid nephrotoxic agents and hypotensive episodes. Diuretics held for now. Encourage oral intake. Repeat electrolytes in the morning. Consider urology consultation for kidney mass.
[2017-01-23] MEDS: SODIUM CHLORIDE 0.9% 1,000 ML IV SCH (10:05)
[2017-01-23] MEDS: ONDANSETRON 4 MG/2 ML VIAL IVP PRN (11:14)
[2017-01-23] MEDS: clonazePAM 0.5 MG TAB PO PRN ×2 (11:14→20:33)
--- NOTE | 2017-01-23 14:10 | P.PN ---
Subjective Progress note dated 01/21/2017 This is a patient who was admitted back on January 19. He came in with acute kidney injury and hyponatremia as well as hyperkalemia. The patient was seen by nephrology. From the pulmonary standpoint, he has a history of sleep apnea syndrome. The patient was tried on BiPAP by my partner but apparently he gave him some difficulty.anyway, the patient seemed to be resting comfortably. No major complaints today. No chest pain chest discomfort shortness breath cough phlegm production or any other complaints for that matter. He was lying on his stomach sleeping when I first went into the room. I had to actually wake him up. Progress note dated 01/22/2017 The patient is doing well from the pulmonary standpoint. He apparently does have a history suggestive of sleep apnea syndrome and has apparently had the visit to Dr. June but is not actually had these sleep study as yet.The patient is to apparently have a transesophageal echo with a possible ablation.he seemed be doing relatively well. Feeling generally well. No major complaints from our standpoint. No chest pain discomfort. No fever no chills. No nausea vomiting or diarrhea. Progress note dated 01/23/2017 The patient is doing well. Underwent a transesophageal echocardiogram today. Also had cardioversion performed by Dr. Woodard. He received 3 shocks of 200 303 360 J. Apparently normal sinus rhythm was reestablished. He seems to be little out of it. He is on the chair next to the bed. Wrap-up and a blanket. Other than that he seemed relatively well. He does see Dr. Del Rosario for sleep apnea syndrome. Objective - Vital Signs Vital signs: Vital Signs Temp 96.9 F L 01/23/17 04:00 Pulse 80 01/23/17 08:26 Resp 16 01/23/17 08:26 BP 116/84 01/23/17 08:26 Pulse Ox 96 01/23/17 08:26 Intake & Output 01/22/17 01/23/17 01/23/17 18:59 06:59 18:59 Intake Total 991 300 Output Total 250 Balance 741 300 Weight 131 kg Intake: IV 237 200 Sodium Chloride 0.9% 1, 237 000 ml @ 50 mls/hr IV . Q20H [facility] Rx#:[id number] Oral 754 100 Output: Urine 250 Other: Voiding Method Toilet Urinal # Voids 0 - Exam No acute distress, oriented 3. HEENT examination is grossly unremarkable. Mucous membranes are moist. Neck supple. Full range of motion. No thyromegaly or adenopathy. Neck veins are flat. Cardio vascular examination reveals distant heart sounds. S1-S2 normal. No S3- S4 or murmur. Lungs reveal relatively clear breath sounds. No wheezes or rhonchi. No crackles. No adventitious lung sounds for that matter. Abdomen soft bowel sounds are heard. Extremities are intact. Mild edema. - Labs CBC & Chem 7: 01/19/17 01:14 01/23/17 06:18 Labs: Abnormal Lab Results - Last 24 Hours (Table) 01/23/17 Range/Units 06:18 Sodium 136 L (137-145) mmol/L BUN 21 H (9-20) mg/dL Assessment and Plan (1) Atrial fibrillation with RVR Status: Acute (2) Cardiomyopathy Status: Acute (3) Congestive heart failure Status: Acute (4) HTN (hypertension) Status: Acute (5) Hypothyroid Status: Acute (6) Systolic CHF, acute on chronic Status: Acute Plan: assessment CHF Sleep apnea syndrome chronic bronchial asthma, quiescent ADHD Hypothyroidism Hypertension Restrictive lung disease. Acute kidney injury. Plan From the pulmonary standpoint the patient seemed be doing relatively well. Follow-up in our office as recommended. Probably should see Dr. Del Rosario for his sleep apnea syndrome. We'll continue to follow. Prognosis is guarded. Labs x-rays medications are reviewed. Plan dated 01/22/2017 This 56-year-old male with a history of heart failure sleep apnea syndrome chronic bronchial asthma and ADHD hypothyroidism hypertension and restrictive lung disease obesity and acute kidney injury is doing well. He apparently scheduled to have a SHEILA in the near future with cardiology. We'll follow. We' ll make sure the patient follows up with Dr. June in our office for his sleep study evaluation. Plan dated 01/23/2017. This is a 56-year-old male with a history of heart failure sleep apnea syndrome asthma ADHD hypothyroidism hypertension and restrictive lung disease secondary to obesity and acute kidney injury. Also has a history of atrial fibrillation/ flutter. The patient underwent cardioversion today. Prior to that he had a transesophageal echocardiogram. From the pulmonary standpoint doing well. We' ll see when necessary. Time with Patient: Less than 30
[2017-01-23] MEDS: FOLIC ACID 1 MG TAB PO SCH (15:16)
[2017-01-23] MEDS: THIAMINE 100 MG TAB PO SCH (15:16)
[2017-01-23] MEDS: MULTIVITAMINS, THERA 1 EACH TAB PO SCH (15:16)
--- NOTE | 2017-01-23 22:47 | PN ---
DATE OF SERVICE: 01/22/2017 ADDENDUM TO PROGRESS NOTE Correction: Patient's document was dictated on 01/22/17 at 1736. Date transcribed 01/22/17 at 2020. The correct date of service is 01/22/17.
--- NOTE | 2017-01-23 22:56 | PN ---
DATE OF SERVICE: 01/23/2017 PRESENTING COMPLAINT: Tired. INTERVAL HISTORY: This is a patient who presented with CHF exacerbation. He was given diuresis, with which he went into acute renal failure which has now greatly improved. Patient also has underlying atrial flutter; underwent a SHEILA today, then successful cardioversion. He remains in sinus rhythm. Patient is having some gastric upset. Other than that, feeling better. Nerves are better controlled. Patient's youngest daughter is at the bedside. Review of systems done for constitutional, cardiovascular, GI, pulmonary; relevant findings as above. Current medications are reviewed that include Eliquis, Symbicort, Wellbutrin, Klonopin, Synthroid, Lopressor. On examination, temperature 97.3, pulse 80, respiration 16, blood pressure 135/84, pulse ox 99% on 2 L. GENERAL APPEARANCE: Sitting on the edge of the bed. Awake, comfortable. EYES: Pupils equal. Conjunctivae normal. NECK: JVD not raised. Mass not palpable. RESPIRATORY: Effort normal. LUNGS: Decreased breath sounds. CARDIOVASCULAR: Heart sounds irregular. Edema present. ABDOMEN: Distended, soft. Liver and spleen not palpable. PSYCHIATRY: Alert and oriented x3. Mood and affect normal. INVESTIGATIONS: Potassium 5.1. BUN 21, creatinine 1.0. ASSESSMENT: 1. Acute on chronic congestive heart failure from systolic dysfunction; ejection fraction 20%, from hypertensive heart disease; stabilized. 2. Atrial flutter, persistent, status post cardioversion. Now in sinus rhythm. 3. Obesity; body mass index 39.7. 4. Hyperlipidemia. 5. Essential hypertension. 6. Hypothyroidism. 7. Adjustment disorder with significant anxiety. 8. Patient work up for sleep apnea. 9. Acute renal failure, probably acute tubular necrosis and medication-induced, with resolution. 10. Hyperkalemia from acute renal failure, drug-associated, improved. 11. Hyponatremia, hypo-osmolar, due to excessive diuresis, improved. 12. Sleep deprivation with exhaustion. Continues to improve. PLAN: Care was discussed with the patient and his daughter. Patient is getting some laxative. Encouraged to walk about in the hallway. Overall doing much better.
[2017-01-24] MEDS: LEVOTHYROXINE 137 MCG TAB PO SCH (06:31)
[2017-01-24] MEDS: PANTOPRAZOLE 40 MG TABLET PO SCH (06:31)
[2017-01-24 07:04] LABS: Anion Gap 9 mmol/L; Blood Urea Nitrogen 24 mg/dL (9-20); Calcium 8.4 mg/dL (8.4-10.2); Carbon Dioxide 23 mmol/L (22-30); Chloride 99 mmol/L (98-107); Glucose 108 mg/dL (74-99); Non-African American GFR(MDRD) >60 (>60 ml/min/1.73 sqM); Potassium 5.1 mmol/L (3.5-5.1); Sodium 131 mmol/L (137-145)
[2017-01-24] MEDS: SYMBICORT 160-4.5 MCG INHALER INHALATION SCH (08:12)
[2017-01-24] MEDS: SODIUM CHLORIDE 0.9% 1,000 ML IV SCH (08:28)
[2017-01-24] MEDS: POLYETHYLENE GLYCOL 3350 17 GM POWD.PACK PO SCH (08:29)
[2017-01-24] MEDS: MONTELUKAST 10 MG TAB PO SCH (08:42)
[2017-01-24] MEDS: APIXABAN 5 MG TAB PO SCH (08:42)
[2017-01-24] MEDS: METOPROLOL TARTRATE 25 MG TAB PO SCH (08:43)
[2017-01-24] MEDS: buPROPion XL 150 MG TAB.ER.24H PO SCH (08:43)
[2017-01-24] MEDS ORDERED: LISINOPRIL 5 MG TAB PO SCH (09:00)
--- NOTE | 2017-01-24 09:26 | P.PN ---
Subjective Patient is seen in follow-up for acute kidney injury. His baseline creatinine is near 1 and peaked at 3.1 this admission. It is stable at 1.08today. Patient presented with shortness of breath along with nausea and vomiting. He was also hypotensive with systolic blood pressure in the 80s. He was initially receiving IV diuretics which are now held. He then received IV fluids which are also now discontinued. His appetite is starting to improve although he does not like hospital food. Admits to good urine output. Denies chest pain or shortness of breath. He does have systolic CHF with ejection fraction of 20% .. He does admit to lower extremity swelling. His sodium level is down to 131 but he states he's been drinking a lot of fluids. Vital signs are stable. General: The patient appeared well nourished and normally developed. HEENT: Head exam is unremarkable. Neck is without jugular venous distension. LUNGS: Lungs are clear to auscultation and percussion. Breath sounds decreased. HEART: Rate and Rhythm are regular. First and second heart sounds normal. No murmurs, rubs or gallops. ABDOMEN: Abdominal exam reveals normal bowel sounds. Non-tender and non- distended. No evidence of peritonitis. EXTREMITITES: Trace edema. Objective - Vital Signs Vital signs: Vital Signs Temp 98.5 F 01/24/17 00:10 Pulse 68 01/24/17 03:24 Resp 16 01/24/17 03:24 BP 105/69 01/24/17 03:24 Pulse Ox 100 01/24/17 03:24 Intake & Output 01/23/17 01/24/17 01/24/17 18:59 06:59 18:59 Intake Total 300 1560 Balance 300 1560 Weight 132.9 kg Intake: IV 200 Oral 100 1560 Other: # Voids 1 - Labs CBC & Chem 7: 01/19/17 01:14 01/24/17 06:26 Labs: Abnormal Lab Results - Last 24 Hours (Table) 01/24/17 Range/Units 06:26 Sodium 131 L (137-145) mmol/L BUN 24 H (9-20) mg/dL Glucose 108 H (74-99) mg/dL Assessment and Plan Plan: Assessment: #1. Nonoliguric acute kidney injury mostly prerenal in nature secondary to diuretics. Improving. Creatinine stable at 1.08 today. Baseline creatinine near 1. Urinalysis is benign. Renal ultrasound revealed no hydronephrosis. #2. Hypervolemic hyponatremia. #3. Systolic CHF with ejection fraction of 20%. #4. Hyperkalemia secondary to acute kidney injury as well as from the use of LEMUEL inhibitor and Aldactone. Resolved. #5. Left kidney mass. #6. Atrial fibrillation status post cardioversion January 23. Plan: Hep-Lock IV fluids. Avoid nephrotoxic agents and hypotensive episodes. Lasix 40 mg IV once today. Encourage oral intake. 1.2 L fluid restriction. Repeat electrolytes in the morning. Consider urology consultation for kidney mass - can be done as an outpatient. I advised him to monitor his weight and swelling of the lower extremities at home closely. If no improvement he can resume Lasix 40 mg once daily.
[2017-01-24] MEDS ORDERED: FUROSEMIDE 10 MG/ML 4 ML VIAL IV STA (09:27)
[2017-01-24] MEDS: THIAMINE 100 MG TAB PO SCH (10:37)
[2017-01-24] MEDS: MULTIVITAMINS, THERA 1 EACH TAB PO SCH (10:37)
[2017-01-24] MEDS: FOLIC ACID 1 MG TAB PO SCH (10:37)
[2017-01-24 11:22] LABS: Potassium,Urine Random 41.2 mmol/L; Sodium, Urine Random <5 mmol/L (30-90)
--- NOTE | 2017-01-24 11:31 | P.PN ---
Subjective Principal diagnosis: Shortness of breath This is a 56-year-old gentleman who follows with Dr. Woodard in the office. Was recently discharged from the hospital at which time he was treated for atrial flutter with rapid ventricular response and found to have an ejection fraction of 20-25%. He also has a history of asthma, hypertension, thyroid disorder and questionable history of obstructive sleep apnea for which she is awaiting further follow-up. Presented to the emergency department with complaints of increasing shortness of breath while lying flat. He also had complaints of intermittent dyspnea on exertion as well as lower extremity edema. EKG also showed patient to be in atrial flutter with rapid ventricular response, he was initiated on IV amiodarone. Patient was recently started on by mouth amiodarone in the office by Dr. Woodard. Patient underwent SHEILA with elective cardioversion yesterday. He continues to be in a normal sinus rhythm this morning. Overall the patient states he feels much better. Denies any palpitations. Does state that occasionally while lying flat he feels short of breath, he is not sure if it's related to anxiety. Objective - Vital Signs Vital signs: Vital Signs Temp 98.5 F 01/24/17 00:10 Pulse 68 01/24/17 03:24 Resp 16 01/24/17 03:24 BP 105/69 01/24/17 03:24 Pulse Ox 100 01/24/17 03:24 Intake & Output 01/23/17 01/24/17 01/24/17 18:59 06:59 18:59 Intake Total 300 1560 240 Balance 300 1560 240 Weight 132.9 kg Intake: IV 200 Oral 100 1560 240 Other: # Voids 1 1 - Exam PHYSICAL EXAMINATION: HEENT: Head is atraumatic, normocephalic. Pupils equal, round. Neck is supple. There is no elevated jugular venous pressure. HEART EXAMINATION: S1-S2 normal CHEST EXAMINATION: Lungs are clear to auscultation and precussion. No chest wall tenderness is noted on palpation or with deep breathing. ABDOMEN: Soft, nontender. Bowel sounds are heard. No organomegaly noted. EXTREMITIES: 1+ peripheral pulses with evidence of trace to 1+ peripheral edema and no calf tenderness noted. NEUROLOGIC patient is awake, alert and oriented x3. . - Labs CBC & Chem 7: 01/19/17 01:14 01/24/17 06:26 Labs: Abnormal Lab Results - Last 24 Hours (Table) 01/24/17 01/24/17 Range/Units 06:26 06:26 Sodium 131 L (137-145) mmol/L BUN 24 H (9-20) mg/dL Glucose 108 H (74-99) mg/dL Osmolality 273 L (280-301) mosm/kg Assessment and Plan (1) Atrial flutter, paroxysmal Status: Acute (2) Systolic CHF, acute on chronic Status: Acute (3) Cardiomyopathy Status: Acute (4) HTN (hypertension) Status: Acute (5) Hypothyroid Status: Acute (6) Encounter for cardioversion procedure Status: Acute Plan: From cardiology's perspective patient may be able to be discharged home today. We will resume his LEMUEL inhibitor at 5 mg daily. A follow-up appointment will be made with Dr. Woodard in the office in 2 weeks. DNP note has been reviewed, I agree with a documented findings and plan of care. Patient was seen and examined.
[2017-01-24 11:47] VITALS: TEMP 96.9
--- NOTE | 2017-01-24 12:47 | P.PN ---
Subjective Progress note dated 01/21/2017 This is a patient who was admitted back on January 19. He came in with acute kidney injury and hyponatremia as well as hyperkalemia. The patient was seen by nephrology. From the pulmonary standpoint, he has a history of sleep apnea syndrome. The patient was tried on BiPAP by my partner but apparently he gave him some difficulty.anyway, the patient seemed to be resting comfortably. No major complaints today. No chest pain chest discomfort shortness breath cough phlegm production or any other complaints for that matter. He was lying on his stomach sleeping when I first went into the room. I had to actually wake him up. Progress note dated 01/22/2017 The patient is doing well from the pulmonary standpoint. He apparently does have a history suggestive of sleep apnea syndrome and has apparently had the visit to Dr. June but is not actually had these sleep study as yet.The patient is to apparently have a transesophageal echo with a possible ablation.he seemed be doing relatively well. Feeling generally well. No major complaints from our standpoint. No chest pain discomfort. No fever no chills. No nausea vomiting or diarrhea. Progress note dated 01/23/2017 The patient is doing well. Underwent a transesophageal echocardiogram today. Also had cardioversion performed by Dr. Woodard. He received 3 shocks of 200 303 360 J. Apparently normal sinus rhythm was reestablished. He seems to be little out of it. He is on the chair next to the bed. Wrap-up and a blanket. Other than that he seemed relatively well. He does see Dr. Del Rosario for sleep apnea syndrome. Progress note dated 01/24/2017 56-year-old male was doing relatively well. Underwent a transesophageal echocardiogram and a cardioversion done by Dr. Woodard. He received 3 shocks. Remains in sinus rhythm. Doing relatively well. A bit more awake and alert today. We'll need to see Dr. Del Rosario in the future for a sleep study and possible sleep apnea syndrome. Denies any difficulty breathing. No chest pain or chest discomfort. Not coughing up any phlegm or blood. No fever no chills. No nausea vomiting or diarrhea. Objective - Vital Signs Vital signs: Vital Signs Temp 96.9 F L 01/24/17 09:20 Pulse 70 01/24/17 09:20 Resp 18 01/24/17 09:20 BP 106/64 01/24/17 09:20 Pulse Ox 96 01/24/17 09:20 Intake & Output 01/23/17 01/24/17 01/24/17 18:59 06:59 18:59 Intake Total 300 1560 240 Output Total 300 Balance 300 1560 -60 Weight 132.9 kg Intake: IV 200 Oral 100 1560 240 Output: Urine 300 Other: # Voids 1 1 - Exam No acute distress, oriented 3. HEENT examination is grossly unremarkable. Mucous membranes are moist. Neck supple. Full range of motion. No thyromegaly or adenopathy. Neck veins are flat. Cardio vascular examination reveals distant heart sounds. S1-S2 normal. No S3- S4 or murmur. Lungs reveal relatively clear breath sounds. No wheezes or rhonchi. No crackles. No adventitious lung sounds for that matter. Abdomen soft bowel sounds are heard. Extremities are intact. Mild edema. - Labs CBC & Chem 7: 01/19/17 01:14 01/24/17 06:26 Labs: Abnormal Lab Results - Last 24 Hours (Table) 01/24/17 01/24/17 01/24/17 Range/Units 06:26 06:26 10:04 Sodium 131 L (137-145) mmol/L BUN 24 H (9-20) mg/dL Glucose 108 H (74-99) mg/dL Osmolality 273 L (280-301) mosm/kg Ur Random Sodium <5 L (30-90) mmol/L Assessment and Plan (1) Atrial fibrillation with RVR Status: Acute (2) Cardiomyopathy Status: Acute (3) Congestive heart failure Status: Acute (4) HTN (hypertension) Status: Acute (5) Hypothyroid Status: Acute (6) Systolic CHF, acute on chronic Status: Acute Plan: assessment CHF Sleep apnea syndrome chronic bronchial asthma, quiescent ADHD Hypothyroidism Hypertension Restrictive lung disease. Acute kidney injury. Plan From the pulmonary standpoint the patient seemed be doing relatively well. Follow-up in our office as recommended. Probably should see Dr. Del Rosario for his sleep apnea syndrome. We'll continue to follow. Prognosis is guarded. Labs x-rays medications are reviewed. Plan dated 01/22/2017 This 56-year-old male with a history of heart failure sleep apnea syndrome chronic bronchial asthma and ADHD hypothyroidism hypertension and restrictive lung disease obesity and acute kidney injury is doing well. He apparently scheduled to have a SHEILA in the near future with cardiology. We'll follow. We' ll make sure the patient follows up with Dr. June in our office for his sleep study evaluation. Plan dated 01/23/2017. This is a 56-year-old male with a history of heart failure sleep apnea syndrome asthma ADHD hypothyroidism hypertension and restrictive lung disease secondary to obesity and acute kidney injury. Also has a history of atrial fibrillation/ flutter. The patient underwent cardioversion today. Prior to that he had a transesophageal echocardiogram. From the pulmonary standpoint doing well. We' ll see when necessary. Plan dated 01/24/2017 This 56-year-old male with a history of heart failure sleep apnea syndrome obesity asthma ADHD hypothyroidism hypertension restrictive lung disease acute kidney injury and atrial fibrillation/flutter, status post cardioversion is doing well. The patient feels like he is back to baseline. His energy level is good. No shortness of breath. No chest pain. No chest discomfort. From the pulmonary perspective, he is ready for discharge. There may be other issues keeping him here. Time with Patient: Less than 30
[2017-01-24 13:42] VITALS: BP 89/63; PULSE 68; RESP 16
--- NOTE | 2017-01-25 09:39 | DS ---
DATE OF ADMISSION: 01/19/2017 DATE OF DISCHARGE: 01/24/2017 FINAL DIAGNOSES: 1. Acute on chronic congestive heart failure exacerbation from systolic dysfunction; ejection fraction 20%; from hypertensive heart disease. 2. Atrial flutter persistent, status post cardioversion now in sinus rhythm, present on admission. 3. Obesity, body mass index 39.7. 4. Hyperlipidemia. 5. Essential hypertension. 6. Hypothyroidism. 7. Adjustment disorder with significant anxiety. 8. Outpatient workup for sleep apnea. 9. Acute renal failure, probably acute tubular necrosis and medication-induced with resolution, present on admission. 10. Hyperkalemia from acute renal failure, drug induced, improved. 11. Hyponatremia hypoosmolar due to excessive diuresis. 12. Sleep deprivation with exhaustion, present on admission. 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 Found to be in CHF, put on diuretics then did go into renal failure then diuretics were held off and creatinine did from 3.10 did drop down normal to 1.08. At the time of discharge, edema is still picked up. Hence he has been put back on small dose of diuretics. Patient did have a SHEILA and subsequently cardioversion was done for his atrial flutter. Patient's EF runs around 15%. Patient was extremely anxious, was seen by psychiatry, Dr. Cash. Patient's Concerta was discontinued. Patient actually did really well with the new medications and slept better. Today, care was discussed in detail with the patient and patient's daughter. Questions were answered. On exam, lungs decreased breath sounds. Edema is present, significant in the lower extremity. Patient was given earlier IV Lasix by Dr. Alberts. Telemetry shows sinus rhythm. Discharge planning more than 35 minutes. DISCHARGE MEDICATIONS: 1. Synthroid 137 mcg p.o. daily. 2. Singulair 10 mg p.o. daily. 3. Breo Ellipta 200/25 two puffs daily. 4. Eliquis 5 mg p.o. b.i.d. 5. Folic acid 1 mg p.o. daily. 6. [place] 5 one tablet q.6 p.r.n. 7. Multivitamin 1 tablet p.o. daily. 8. Protonix 40 mg p.o. with breakfast. 9. Aldactone 25 mg p.o. daily. 10. Vitamin B 100 mg p.o. daily at noon. 11. Cordarone 200 mg p.o. b.i.d. 12. Lasix 20 mg p.o. daily. 13. Zestril 5 mg p.o. q.h.s. 14. Lopressor 25 mg p.o. b.i.d. 15. MiraLAX 17 grams p.o. Saturday, Saturday and Saturday. 16. Wellbutrin XL 150 mg p.o. daily. 17. Klonopin 0.25 mg p.o. t.i.d. p.r.n. Follow up with Dr. Woodard on 02/06/17. Follow up with Dr. Castro in one week for renal mass showing up. Follow up with Dr. Dia Pierson within the week and Dr. Del Rosario 02/07/17 for sleep study. LABS: BMP in 5 days.
== END 2017-01-24 16:52 | disposition home or self-care (01) | DRG 291 ==
LOC: EC 00:21 → 6SEL 03:25
PROVIDERS: ADMIT Hospitalist; ATTEND Hospitalist
PROC: 5A2204Z Restoration of Cardiac Rhythm, Single (ICD-10-PCS; 2017-01-23)
PROC: B246ZZ4 Ultrasonography of Right and Left Heart, Transesophageal (ICD-10-PCS; principal; 2017-01-23 08:30)
DX: I11.0 Hypertensive heart disease with heart failure (principal); N17.0 Acute kidney failure with tubular necrosis; I95.9 Hypotension, unspecified; E86.1 Hypovolemia; E87.1 Hypo-osmolality and hyponatremia; E87.5 Hyperkalemia; I48.92 Unspecified atrial flutter; Z79.01 Long term (current) use of anticoagulants; I50.23 Acute on chronic systolic (congestive) heart failure; I08.1 Rheumatic disorders of both mitral and tricuspid valves; F43.22 Adjustment disorder with anxiety; T46.4X5A Adverse effect of angiotensin-converting-enzyme inhibitors, initial encounter; T50.0X5A Adverse effect of mineralocorticoids and their antagonists, initial encounter; T43.635A Adverse effect of methylphenidate, initial encounter; I45.10 Unspecified right bundle-branch block; T50.2X5A Adverse effect of carbonic-anhydrase inhibitors, benzothiadiazides and other diuretics, initial encounter; R93.422 Abnormal radiologic findings on diagnostic imaging of left kidney; I25.5 Ischemic cardiomyopathy; J44.9 Chronic obstructive pulmonary disease, unspecified; I48.91 Unspecified atrial fibrillation; F41.1 Generalized anxiety disorder; E78.5 Hyperlipidemia, unspecified; G47.33 Obstructive sleep apnea (adult) (pediatric); E66.9 Obesity, unspecified; F90.9 Attention-deficit hyperactivity disorder, unspecified type; M19.042 Primary osteoarthritis, left hand; M19.041 Primary osteoarthritis, right hand; E03.9 Hypothyroidism, unspecified; M17.12 Unilateral primary osteoarthritis, left knee; F43.23 Adjustment disorder with mixed anxiety and depressed mood; F32.9 Major depressive disorder, single episode, unspecified; R06.83 Snoring; R53.1 Weakness; R61 Generalized hyperhidrosis; J98.4 Other disorders of lung; J45.909 Unspecified asthma, uncomplicated; R11.2 Nausea with vomiting, unspecified; Z59.9 Problem related to housing and economic circumstances, unspecified; Z88.8 Allergy status to other drugs, medicaments and biological substances; Z87.81 Personal history of (healed) traumatic fracture; Z87.820 Personal history of traumatic brain injury; Z98.52 Vasectomy status; Z80.6 Family history of leukemia; Z82.49 Family history of ischemic heart disease and other diseases of the circulatory system; Z87.828 Personal history of other (healed) physical injury and trauma; Z86.010 Personal history of colon polyps; Z87.09 Personal history of other diseases of the respiratory system; Z68.39 Body mass index [BMI] 39.0-39.9, adult; Z87.891 Personal history of nicotine dependence; Z72.820 Sleep deprivation; Z79.899 Other long term (current) drug therapy; Z82.3 Family history of stroke; Z79.82 Long term (current) use of aspirin; Z79.891 Long term (current) use of opiate analgesic; Z79.51 Long term (current) use of inhaled steroids; Z71.3 Dietary counseling and surveillance
CPT/HCPCS: 36415; 71020; 76770; 80048; 80053; 81003; 82533; 82550; 82553; 83735; 83880; 83930; 83935; 84133; 84300; 84484; 85025; 85379; 87502; 92960; 93005; 93312; 93320; 93325; 94640; 94660; 96374; 99291

== ENCOUNTER → 2017-02-16 | Outpatient (CLI) | payer OTHER ==
[2017-02-16 11:50] LABS: ALT 80 U/L (21-72); AST 49 U/L (17-59); Alkaline Phosphatase 46 U/L (38-126); Anion Gap 9 mmol/L; Blood Urea Nitrogen 21 mg/dL (9-20); Carbon Dioxide 31 mmol/L (22-30); Chloride 100 mmol/L (98-107); Glucose 72 mg/dL (74-99); Non-African American GFR(MDRD) >60 (>60 ml/min/1.73 sqM); Potassium 5.6 mmol/L (3.5-5.1); Sodium 140 mmol/L (137-145); Total Bilirubin 0.9 mg/dL (0.2-1.3); Total Protein 7.2 g/dL (6.3-8.2)
== END ==
LOC: LABWHC1 10:57
PROVIDERS: ATTEND Internal Medicine Interventional Cardiology
DX: I10 Essential (primary) hypertension (principal)
CPT/HCPCS: 36415; 80053

== ENCOUNTER → 2017-02-16 | Outpatient (CLI) | payer OTHER | END | disposition home or self-care (01) | LOC: RADMRIMAIN 11:11 | PROVIDERS: ATTEND Urology | DX: Z53.9 Procedure and treatment not carried out, unspecified reason (principal) ==

== ENCOUNTER 2017-03-07 06:27 | Day surgery (SDC) | payer OTHER ==
[2017-03-06 09:15] VITALS: BMI 37.6
[~2017-03-07 06:27] MED LIST: ALPRAZolam 0.25 MG TAB PO PRN; ASPIRIN 325 MG TAB PO ONE; SODIUM CHLORIDE 0.9% 1,000 ML in EMPTY BAG 1 BAG IV ONE
[2017-03-07 07:28] LABS: Basophils # (A) 0.1 k/uL (0-0.2); Basophils % (A) 1 %; CH 29.7; CHCM 33.1; Eosinophils # (A) 0.1 k/uL (0-0.7); Eosinophils % (A) 2 %; HCT 49.8 % (39.0-53.0); HDW 2.36; HGB 16.5 gm/dL (13.0-17.5); Luc # (Auto) 0.33; Luc % (Auto) 4; Lymphocytes # (A) 2.1 k/uL (1.0-4.8); Lymphocytes % (A) 26 %; MCH 29.8 pg (25.0-35.0); MCHC 33.2 g/dL (31.0-37.0); Mean Platelet Volume 9.2; Monocytes # (A) 0.8 k/uL (0-1.0); Monocytes % (A) 10 %; Neutrophils # (A) 4.6 k/uL (1.3-7.7); Neutrophils % (A) 58 %; RBC 5.54 m/uL (4.30-5.90); RDW 14.9 % (11.5-15.5); WBC (Perox) 7.72
[2017-03-07] MEDS ORDERED: VERAPAMIL 2.5 MG/ML 2 ML AMP ONE (07:28)
[2017-03-07] MEDS ORDERED: LIDOCAINE 2% INJ 20 MG/ML (20 ML MDV) ONE (07:28)
[2017-03-07] MEDS ORDERED: fentaNYL (PF) 50 MCG/ML 2 ML AMP ONE (07:37)
[2017-03-07] MEDS ORDERED: diphenhydrAMINE 50 MG/ML 1 ML VIAL ONE (07:38)
[2017-03-07] MEDS ORDERED: diphenhydrAMINE 50 MG/ML 1 ML VIAL IVP ONE (07:40)
[2017-03-07] MEDS ORDERED: fentaNYL (PF) 50 MCG/ML 2 ML AMP IV ONE (07:40)
[2017-03-07] MEDS ORDERED: LIDOCAINE 2% INJ 20 MG/ML SQ ONE (07:44)
[2017-03-07] MEDS ORDERED: VERAPAMIL SYRINGE (5 MG/10 ML) INTRAARTER ONE (07:45)
[2017-03-07] MEDS ORDERED: MIDAZOLAM 2 MG/2 ML VIAL ONE (07:46)
[2017-03-07] MEDS ORDERED: MIDAZOLAM 2 MG/2 ML VIAL IV ONE (07:50)
[2017-03-07] MEDS ORDERED: BIVALIRUDIN 250 MG in SODIUM CHLORIDE 0.9% 50 ML IV ONE (08:00)
[2017-03-07] MEDS ORDERED: BIVALIRUDIN BOLUS 250 MG/50 ML IV ONE (08:00)
[2017-03-07] MEDS ORDERED: CLOPIDOGREL 75 MG TAB ONE ×2 (08:02→08:04)
[2017-03-07] MEDS ORDERED: CLOPIDOGREL 75 MG TAB PO ONE (08:05)
[2017-03-07] MEDS ORDERED: ADENOSINE 180 MG in SODIUM CHLORIDE 0.9% 30 ML IVP ONE (08:17)
[2017-03-07] MEDS ORDERED: IOHEXOL 350 MG/ML 125ML BOTTLE INJ ONE (08:30)
[2017-03-07] MEDS ORDERED: RX INFO: IV CONTRAST WAS GIVEN 1 EACH MISC MISCELLANE PRN (08:41)
[2017-03-07] MEDS ORDERED: ALBUTEROL NEBULIZED 2.5 MG/3 ML INHALATION PRN (08:42)
[2017-03-07] MEDS ORDERED: SODIUM CHLORIDE 0.9% 1,000 ML IV SCH (08:45)
[2017-03-07] MEDS ORDERED: METOPROLOL TARTRATE 25 MG TAB PO SCH (10:00)
[2017-03-07] MEDS ORDERED: LEVOTHYROXINE 137 MCG TAB PO SCH (10:00)
[2017-03-07] MEDS ORDERED: APIXABAN 5 MG TAB PO SCH (10:00)
[2017-03-07] MEDS ORDERED: FUROSEMIDE 20 MG TAB PO SCH (10:00)
[2017-03-07] MEDS ORDERED: AMIODARONE 200 MG TAB PO SCH (10:00)
[2017-03-07] MEDS ORDERED: SPIRONOLACTONE 25 MG TAB PO SCH (10:00)
[2017-03-07] MEDS ORDERED: LISINOPRIL 5 MG TAB PO SCH (10:00)
[2017-03-07] MEDS ORDERED: buPROPion XL 150 MG TAB.ER.24H PO SCH (10:00)
[2017-03-07] MEDS ORDERED: MULTIVITAMINS, THERA 1 EACH TAB PO SCH (12:00)
[2017-03-07] MEDS ORDERED: THIAMINE 100 MG TAB PO SCH (12:00)
[2017-03-07] MEDS ORDERED: FOLIC ACID 1 MG TAB PO SCH (12:00)
[2017-03-07 12:32] VITALS: BP 109/64; PULSE 62; RESP 18; TEMP 98
--- NOTE | 2017-03-07 17:39 | CC ---
DATE OF SERVICE: Mr. Scales is a 56-year-old male who presented with symptoms of progressive dyspnea and was noted to be in atrial flutter with rapid ventricular response and was found to have severe cardiomyopathy. Subsequently he underwent elective cardioversion with taoism of normal sinus rhythm. Because of the severe cardiomyopathy, recommendation was made regarding cardiac catheterization. The procedure as well as the risks and complications were discussed with the patient who is in full understanding and agreement. PROCEDURE: Patient was brought to the lab animal technician in fasting semisedated state after receiving fentanyl and Benadryl and achieving moderate conscious sedated state, using Xylocaine anesthesia and Seldinger technique, a 6 [place]yan sheath was introduced into the right radial artery. Selective right and left coronary angiography was performed using 5 Kenyan 3-1/2 Bend right and left Danette catheters. Multiple views of the coronary arteries including hemiaxial views were obtained. Following that, a 5 [place]yan tight pigtail catheter was introduced into the left ventricle and a 30 degrees FERNANDES view of the left ventricle was obtained. Following that, a 6 [place] FL 3-1/2 guiding catheter was introduced into the system. After cannulating the left main, images of the left circumflex were obtained. Following that the Doppler flow wire was introduced across the obtuse marginal branch and after receiving an infusion of adenosine intravenously, the fractional flow reserve was measured. Following that, a wire and the guiding catheter were removed. Hemostasis was obtained with deployment of an TR band. There were no immediate complications. Patient is returned to his room in stable condition. Of note, the patient received Angiomax per protocol as well as oral loading dose of Clopidogrel and intra-arterial verapamil. There was no immediate complication. FINDINGS: LEFT MAIN: This is a short-sized vessel bifurcating into left circumflex, left anterior descending artery, left main coronary artery is without any significant obstructive coronary artery disease. LEFT ANTERIOR DESCENDING CORONARY ARTERY: This is a large-size vessel reaching toward the apex with a wrap around the apex segment, giving rise to 2 diagonal branches. The left anterior descending artery proximally, has 20% to 30% plaque in the mid segment. At the take off of the first branch, there is another 30 to 40% plaque. The rest of the vessel has no high-grade stenosis. Left circumflex: This is a large nondominant vessel, giving rise to 2 obtuse marginal. At the proximal segment of the first obtuse marginal branch, there is a 50% plaque. The rest of the vessel has no high-grade stenosis. RIGHT CORONARY ARTERY: This is a large dominant vessel, bifurcating distally to a PDA and posterolateral segment and branches. The right coronary artery and its branches have no evidence of obstructive coronary artery disease. LEFT VENTRICULOGRAM: Left ventriculogram was performed in 30 degrees FERNANDES view and revealed a severely dilated left ventricle with severe global hypokinesis. Ejection fraction is 25%. HEMODYNAMICS: There was no gradient across the aortic valve. The left ventricle end-diastolic pressure was 34 mmHg. CONCLUSION: 1. Moderate disease in the first obtuse marginal branch. 2. Mild disease in the left anterior descending. 3. Severely impaired left ventricular systolic function. 4. Fractional flow reserve was 84% in the left circumflex, which is consistent with a nonhemodynamic significant lesion. RECOMMENDATIONS: In view of those findings, we recommend continued medical therapy with aggressive coronary risk modifications that has been initiated and we will continue to follow his left ventricular systolic function. If there is no improvement, then the patient would be a candidate for an ICD implantation. Those findings and recommendations were discussed with the patient and his family and they are in full understanding and agreement. The duration of the procedure: 41 minutes.
[2017-03-07] MEDS ORDERED: SYMBICORT 160-4.5 MCG INHALER INHALATION SCH (20:00)
[2017-03-07] MEDS ORDERED: MONTELUKAST 10 MG TAB PO SCH (21:00)
== END 2017-03-07 15:50 | disposition home or self-care (01) ==
LOC: CATHCVL 06:27 → 3OBS 09:45 → CATHCVL 15:50
PROVIDERS: ATTEND Internal Medicine Interventional Cardiology
DX: I25.10 Atherosclerotic heart disease of native coronary artery without angina pectoris (principal); I10 Essential (primary) hypertension; I51.9 Heart disease, unspecified; I48.3 Typical atrial flutter; Z79.01 Long term (current) use of anticoagulants; I42.8 Other cardiomyopathies; E07.9 Disorder of thyroid, unspecified; G47.33 Obstructive sleep apnea (adult) (pediatric); Z82.49 Family history of ischemic heart disease and other diseases of the circulatory system; E78.5 Hyperlipidemia, unspecified; Z88.8 Allergy status to other drugs, medicaments and biological substances; Z79.51 Long term (current) use of inhaled steroids; Z79.899 Other long term (current) drug therapy
CPT/HCPCS: 93571; 93458; 84132; 85025; C1769 ×2; C1887; C1894; J2001; J2250; J1200; J3010; J0583; J0153; Q9967